=== PATIENT | male | born 1935 | race Caucasian/White ===

== ENCOUNTER 2017-01-19 07:00 | Inpatient (IN) | payer MEDICARE ==
[2017-01-19] MEDS ORDERED: NS 0.9% 1000 ML* 3,000 ML IV ONE (07:58)
[2017-01-19 08:23] LABS: Hematocrit 36 % (42-52); Hemoglobin 11.9 g/dl (14.0-18.0); Mean Corpuscular HGB Conc 33 g/dl (31-36); Mean Corpuscular Hemoglobin 30 pg (27-31); Mean Corpuscular Volume 91 fL (80-94); Mean Platelet Volume 8 um3 (7.4-10.4); Red Blood Count 3.92 10^6/ul (4.0-5.4); Red Cell Distribution Width 14 % (10.5-15); White Blood Count 11.3 10^3/ul (3.5-10.8)
[2017-01-19 08:36] LABS: Albumin 3.1 g/dL (3.2-5.2); BUN/Creatinine Ratio 13.5 (8-20); Calcium 8.9 mg/dL (8.6-10.3); EGFR African American 27.9 (>60); EGFR Non-African American 21.7 (>60); Globulin 3.5 g/dL (2-4); Magnesium 2.1 mg/dL (1.9-2.7); Potassium 3.4 mmol/L (3.5-5.0); Total Bilirubin 0.9 mg/dL (0.2-1.0); Total Protein 6.6 g/dL (6.4-8.9)
[2017-01-19 08:46] LABS: Troponin I 0.22 ng/mL (<0.04)
--- NOTE | 2017-01-19 08:50 | RAD ---
INDICATION: Syncope COMPARISON: Most recent comparison chest x-ray is dated September 08, 2014 TECHNIQUE: Single AP portable view of the chest was obtained. FINDINGS: Image quality is compromised due to the relative inferiority of a portable chest x-ray. The heart and mediastinum exhibit normal size and contour. The lungs are grossly clear. There is a small degree of left costophrenic angle blunting similar in appearance to the previous chest x-ray which could represent atelectasis or scarring. There is no evidence of a large pleural effusion. Visualized bones are normal for the patient's age. IMPRESSION: No radiographic evidence for acute cardiopulmonary abnormality on this portable chest x-ray.
[2017-01-19] MEDS ORDERED: NS 0.9% 1000 ML* 1,000 ML IV SCH (09:30)
[2017-01-19 09:58] LABS: TSH (Thyroid Stimulating Horm) 4.23 mcIU/mL (0.34-5.60)
--- NOTE | 2017-01-19 11:07 | ED ---
Des Duran Salem, scribed for Petey Knight MD on 01/19/17 at 0817 . Syncope/Near Syncope - HPI Summary HPI Summary: Patient is a 81 y/o M who presents to the ED with a syncope episode. He reports dizziness, weakness, dry throat, and frequency, but denies D/V, abd pain, cough , changes in vision or speech, fever, chills, or edema. Pt states that he fell slowly during syncope episode and denies any injuries. Pt also denies any recent changes in medication or taking any blood thinners. No PMHx of DM or syncope. He lives at home with his . - History Of Current Complaint Time Seen by Provider: 01/19/17 08:50 Hx Obtained From: Patient Onset/Duration: Gradual Onset, Lasting Hours, Resolved Timing: Constant Activity At Onset: Other - Walking to restroom. Associated Head Trauma: No Aggravating Factor(s): Nothing Alleviating Factor(s): Nothing Associated Signs And Symptoms: Negative - Allergies/Home Medications Allergies/Adverse Reactions: Allergies Allergy/AdvReac Type Severity Reaction Status Date / Time Iodine Allergy Intermediate Rash Verified 06/18/15 17:23 PMH/Surg Hx/FS Hx/Imm Hx Endocrine/Hematology History: Denies: Hx Diabetes, Hx Thyroid Disease Cardiovascular History: Reports: Hx Coronary Artery Disease - PRN NITROSTAT, Hx Hypercholesterolemia, Hx Hypertension Respiratory History: Reports: Hx Pulmonary Embolism Denies: Hx Asthma, Hx Chronic Obstructive Pulmonary Disease (COPD) GI History: Reports: Other GI Disorders - hx of colon cancer Denies: Hx Ulcer Musculoskeletal History: Reports: Hx Arthritis Sensory History: Reports: Hx Contacts or Glasses - reading glasses Opthamlomology History: Reports: Hx Contacts or Glasses - reading glasses Psychiatric History: Reports: Hx Anxiety, Hx Depression, Hx Community Mental Health Tx Denies: Hx Eating Disorder, Hx of Violent Episodes Against Others - Cancer History Cancer Type, Location and Year: HX OF COLON CA - Surgical History Surgery Procedure, Year, and Place: colon Infectious Disease History: Denies: Hx Clostridium Difficile, Hx Hepatitis, Hx Human Immunodeficiency Virus (HIV), Hx of Known/Suspected MRSA, Hx Shingles, Hx Tuberculosis, Traveled Outside the [place] in Last 30 Days - Family History Known Family History: Positive: Other - no mental health FHx - Social History Alcohol Use: None Hx Substance Use: No Substance Use Type: Reports: None Hx Tobacco Use: No Smoking Status (MU): Never Smoked Tobacco Review of Systems Negative: Fever, Chills Positive: Other - Dry throat. Negative: Cough Negative: Abdominal Pain, Vomiting, Diarrhea Positive: frequency Negative: Edema Neurological: Other - Dizziness. No changes in vision or speech. Positive: Weakness, Syncope All Other Systems Reviewed And Are Negative: Yes Physical Exam - Summary Physical Exam Summary: The patient is well-nourished in no acute distress and in no acute pain. Generalized weakness. The skin is warm and dry and skin color reflects adequate perfusion. Decreased skin turgor. HEENT: The head is normocephalic and atraumatic. The pupils are equal and reactive. The conjunctivae are clear and without drainage. Nares are patent and without drainage. Mouth reveals moist mucous membranes and the throat is without erythema and exudate. The external ears are intact. The ear canals are patent and without drainage. The tympanic membranes are intact. DMM extremely. Neck is supple with full range of motion and non-tender. There are no carotid bruits. There is no neck vein distension. Respiratory: Chest is non-tender. Crackles in left base. Cardiovascular: Hear is regular rate and rhythm. There is no murmur or rub auscultated. There is no peripheral edema and pulses are symmetrical and equal. Good pulses distally. Abdomen: The abdomen is soft and non-tender. There are normal bowel sounds heard. Musculoskeletal: There is no back pain noted. Extremities are non-tender with full range of motion. There is good capillary refill. There is peripheral edema, but no calf tenderness elicited. Neurological: Patient is alert and oriented to person, place and time. The patient has symmetrical motor strength in all four extremities. Psychiatric: The patient has an appropriate affect and does not exhibit any anxiety or depression. Triage Information Reviewed: Yes Vital Signs On Initial Exam: Initial Vitals Temp Pulse Resp BP Pulse Ox 98.8 F 93 16 85/36 91 01/19/17 07:11 01/19/17 07:11 01/19/17 07:11 01/19/17 07:11 01/19/17 07:11 Vital Signs Reviewed: Yes - [place] Coma Scale Coma Scale Total: 15 Diagnostics - Vital Signs Vital Signs Temp Pulse Resp BP Pulse Ox 01/19/17 07:11 98.8 F 93 16 85/36 91 - Laboratory Lab Results: Lab Results 01/19/17 01/19/17 01/19/17 Range/Units 08:10 08:10 08:10 WBC 11.3 H (3.5-10.8) 10^3/ul RBC 3.92 L (4.0-5.4) 10^6/ul Hgb 11.9 L (14.0-18.0) g/dl Hct 36 L (42-52) % MCV 91 (80-94) fL MCH 30 (27-31) pg MCHC 33 (31-36) g/dl RDW 14 (10.5-15) % Plt Count 118 L (150-450) 10^3/ul MPV 8 (7.4-10.4) um3 Neut % (Auto) 83.4 H (38-83) % Lymph % (Auto) 5.4 L (25-47) % Todd % (Auto) 9.7 H (1-9) % Eos % (Auto) 1.1 (0-6) % Baso % (Auto) 0.4 (0-2) % Absolute Neuts (auto) 9.4 H (1.5-7.7) 10^3/ul Absolute Lymphs (auto) 0.6 L (1.0-4.8) 10^3/ul Absolute Monos (auto) 1.1 H (0-0.8) 10^3/ul Absolute Eos (auto) 0.1 (0-0.6) 10^3/ul Absolute Basos (auto) 0 (0-0.2) 10^3/ul Absolute Nucleated RBC 0 10^3/ul Nucleated RBC % 0 INR (Anticoag Therapy) (0.89-1.11) Sodium 135 (133-145) mmol/L Potassium 3.4 L (3.5-5.0) mmol/L Chloride 100 L (101-111) mmol/L Carbon Dioxide 25 (22-32) mmol/L Anion Gap 10 (2-11) mmol/L BUN 38 H (6-24) mg/dL Creatinine 2.81 H (0.67-1.17) mg/dL Est GFR ( Amer) 27.9 (>60) Est GFR (Non-Af Amer) 21.7 (>60) BUN/Creatinine Ratio 13.5 (8-20) Glucose 142 H (70-100) mg/dL Lactic Acid 2.4 H* (0.5-2.0) mmol/L Calcium 8.9 (8.6-10.3) mg/dL Magnesium 2.1 (1.9-2.7) mg/dL Total Bilirubin 0.90 (0.2-1.0) mg/dL AST 14 (13-39) U/L ALT 9 (7-52) U/L Alkaline Phosphatase 57 (34-104) U/L Total Creatine Kinase 129 (10-223) U/L Troponin I 0.22 H* (<0.04) ng/mL Total Protein 6.6 (6.4-8.9) g/dL Albumin 3.1 L (3.2-5.2) g/dL Globulin 3.5 (2-4) g/dL Albumin/Globulin Ratio 0.9 L (1-3) TSH 4.23 (0.34-5.60) mcIU/mL 01/19/17 Range/Units 08:10 WBC (3.5-10.8) 10^3/ul RBC (4.0-5.4) 10^6/ul Hgb (14.0-18.0) g/dl Hct (42-52) % MCV (80-94) fL MCH (27-31) pg MCHC (31-36) g/dl RDW (10.5-15) % Plt Count (150-450) 10^3/ul MPV (7.4-10.4) um3 Neut % (Auto) (38-83) % Lymph % (Auto) (25-47) % Todd % (Auto) (1-9) % Eos % (Auto) (0-6) % Baso % (Auto) (0-2) % Absolute Neuts (auto) (1.5-7.7) 10^3/ul Absolute Lymphs (auto) (1.0-4.8) 10^3/ul Absolute Monos (auto) (0-0.8) 10^3/ul Absolute Eos (auto) (0-0.6) 10^3/ul Absolute Basos (auto) (0-0.2) 10^3/ul Absolute Nucleated RBC 10^3/ul Nucleated RBC % INR (Anticoag Therapy) 1.09 (0.89-1.11) Sodium (133-145) mmol/L Potassium (3.5-5.0) mmol/L Chloride (101-111) mmol/L Carbon Dioxide (22-32) mmol/L Anion Gap (2-11) mmol/L BUN (6-24) mg/dL Creatinine (0.67-1.17) mg/dL Est GFR ( Amer) (>60) Est GFR (Non-Af Amer) (>60) BUN/Creatinine Ratio (8-20) Glucose (70-100) mg/dL Lactic Acid (0.5-2.0) mmol/L Calcium (8.6-10.3) mg/dL Magnesium (1.9-2.7) mg/dL Total Bilirubin (0.2-1.0) mg/dL AST (13-39) U/L ALT (7-52) U/L Alkaline Phosphatase (34-104) U/L Total Creatine Kinase (10-223) U/L Troponin I (<0.04) ng/mL Total Protein (6.4-8.9) g/dL Albumin (3.2-5.2) g/dL Globulin (2-4) g/dL Albumin/Globulin Ratio (1-3) TSH (0.34-5.60) mcIU/mL Result Diagrams: 01/19/17 08:10 01/19/17 08:10 Diagnostic Studies Comment: Trop: 0.22. Lactic acid: 2.4 Lab Statement: Any lab studies that have been ordered have been reviewed, and results considered in the medical decision making process. - Radiology CXR Radiology Interpretation Completed By: Radiologist - IMPRESSION: No radiographic evidence for acute cardiopulmonary abnormality on this portable chest x-ray. Course/Dx Course Of Treatment: 81 y/o M presents to the ED with a syncope episode. He reports dizziness, weakness, dry throat, and frequency, but denies D/V, abd pain , cough, changes in vision or speech, fever, chills, or edema. Pt received fluids in ED course. CXR shows, per radiology, No radiographic evidence for acute cardiopulmonary abnormality on this portable chest x-ray.. Discussed case with Dr. Jorge. Will be admitted. - Diagnoses Differential Diagnosis/HQI/PQRI: Positive: Metabolic Reaction, Myocardial Infarction, Vasovagal Episode, Other - dehydration Provider Diagnoses: Hypotension, Elevated troponin, Severe dehydration - Physician Notifications Discussed Care of Patient With: Katarzyna Jorge Time Discussed With Above Provider: 09:12 Instructed by Provider To: Admit As Inpatient Admit/Transition Orders Completed By ED Provider: Yes Discharge - Discharge Plan Condition: Stable Disposition: ADMITTED TO [facility] Referrals: Ann Mccall MD [Primary Care Provider] - The documentation as recorded by the Des hurtado Salem accurately reflects the service I personally performed and the decisions made by , Petey Knight MD.
[2017-01-19] MEDS ORDERED: NS 0.9% 1000 ML* 1,000 ML IV ONE ×2 (12:13→13:15)
[2017-01-19] MEDS ORDERED: Acetaminophen TAB* 325 MG PO PRN (12:13)
[2017-01-19] MEDS ORDERED: traZODone TAB* 50 MG TAB PO PRN (12:15)
[2017-01-19] MEDS ORDERED: EPINEPHrine SYR 0.1 MG/ML* (1:10,000) SYRINGE ONE (13:00)
[2017-01-19] MEDS ORDERED: Midazolam* 1 MG/ML 5 ML VIAL (5 MG) ONE (13:06)
[2017-01-19] MEDS ORDERED: Norepinephrine 16MCG/ML IVPRE* 4,000 MCG/250 ML BAG IV ONE (13:33)
--- NOTE | 2017-01-19 13:38 | RAD ---
INDICATION: Status post intubation. COMPARISON: Comparison is made with a prior study from January 19, 2017 from approximately the 5 hours earlier. TECHNIQUE: A portable view of the chest was obtained. FINDINGS: The patient is status post intubation. The endotracheal tube tip projects over the midline at the level of the clavicular heads. The heart is within normal limits in size. The lungs are underinflated. There is a minimal infiltrate at the left lung base suggestive of atelectasis. There is suggestion of a trace left pleural effusion. IMPRESSION: STATUS POST INTUBATION.
[2017-01-19] MEDS ORDERED: Propofol* 100 ML ONE (13:42)
[2017-01-19] MEDS ORDERED: Heparin VIAL(*) 5000 UNITS/ML VIAL (FIVE THOUSAND) SUBCUT SCH (14:00)
--- NOTE | 2017-01-19 14:11 | PN ---
Hospitalist Progress Note Responded to CAT call. Pt was transferred up from ER to [address] [place] [address]. Prior to transfer patient A and o times three no complaints of chest pain sob, abd pain, back pain, states his dizziness resolved. admits to feeling weak only. While attempting to obtain a weight from patient he became unresponsive, palor, and nursing noted agonal breathing, cat call call than abc alert call, as once patient in bed nursing reports pulseless. When I arrived cpr in progress, one amp of epi given, ROSC obtain after epi, patient intubated by anesthesia, prior to cat call I had just received a call for an elevated trop .22 up to .55 , ekg was verbally ordered however deferred due to abc alert, pt transferred to ICU arelis and central line place by christian ministries professor, christian ministries professor updated on patient and report given, also updated family both son and , will repeat labs now cbc bmp trop mag, echo ekg ordered u/a pending awaiting gage, renal u/ s ordered, care transferred to Dr Jack
--- NOTE | 2017-01-19 14:15 | PN ---
Progress Note - Progress Note Note: Arterial Line Procedure Note Indication: hypotension/shock Consent was Emergent - Prior labs/history was reviewed prior to procedure - Full sterile precautions with chlorhexidine/full drapes/gowns/gloves utilized - Right femoral artery visualized with US - Vessel accessed with return of pulsatile blood. 1 attempt was made to access vessel. A cathetor was threaded over wire into vessel. Good arterial waveform was observed on monitor. - Arterial Catheter was sutured to site - Adequate hemostasis was achieved, EBL 5 cc No immediate complications noted, patient tolerated procedure well. Dressing applied to site. Yves Jack MD Weekday Babysitter (electronically signed)
--- NOTE | 2017-01-19 14:15 | PN ---
Progress Note - Progress Note Note: Central Line Procedure Note Indication: Hypotension/shock, poor vascular access, christa-arrest state Consent was Emergent - Prior labs/history was reviewed prior to procedure - Full sterile precautions with chlorhexidine/full drapes/gowns/gloves utilized - Right femoral vein visualized with ultrasound - Vessel accessed under ultrasound guidance with return of nonpulsatile blood. A guidewire was passed into vessel and confirmed in vessel with ultrasound. 1 attempt was made to access vessel. Vessel was dilated and cathetor was passed over wire into vessel. All ports demonstrated good blood return and flushed. Catheter was sutured to site and dressing applied Adequate hemostasis was achieved, EBL <5cc cc No immediate complications noted, patient tolerated procedure well. Yves Jack MD Medical Record Librarian (electronically signed)
[2017-01-19 14:30] LABS: Urine Bacteria Absent (Absent); Urine Bilirubin Negative (Negative); Urine Glucose Negative (Negative); Urine Nitrite Negative (Negative)
[2017-01-19 14:31] LABS: BUN/Creatinine Ratio 11.8 (8-20); Calcium 8.1 mg/dL (8.6-10.3); EGFR African American 25.4 (>60); EGFR Non-African American 19.8 (>60); Potassium 3.3 mmol/L (3.5-5.0)
[2017-01-19 14:33] LABS: Troponin I 0.7 ng/mL (<0.04)
[2017-01-19] MEDS: NS 0.9% 1000 ML* 1,000 ML IV SCH (14:46)
--- NOTE | 2017-01-19 14:49 | PN ---
Hospitalist Progress Note HOSPITALIST ADDENDUM Case reviewed and d/w Nico Meadows FIBER PICKER multiple times during the day. Suspect Mr. Valdez presented with near syncope and dehydration secondary to poor PO intake and diuretic use. Despite receiving 3 liters of fluid in the ED, upon arrival to , while standing up to check his weight patient had a syncopal episode likely vasovagal followed by PEA. As per RN description, patient was pulseless, and when I arrived he did have electrical activity on the monitor and pulse returned with good blood pressure ( 170/100). Intubated by Anesthesia with good SO2. No overt signs of infection, and his borderline troponins are likely secondary to poor perfusion secondary to hypotension in patient with known CAD. Patient transferred to ICU and now under Dr. Jack's care.
[2017-01-19 14:50] LABS: Hematocrit 34 % (42-52); Hemoglobin 11.1 g/dl (14.0-18.0); Mean Corpuscular HGB Conc 33 g/dl (31-36); Mean Corpuscular Hemoglobin 30 pg (27-31); Mean Corpuscular Volume 92 fL (80-94); Mean Platelet Volume 8 um3 (7.4-10.4); Red Cell Distribution Width 14 % (10.5-15); White Blood Count 13.9 10^3/ul (3.5-10.8)
[2017-01-19 14:57] LABS: PCO2 Arterial 32 mmHg (35-45)
[2017-01-19] MEDS: KCL 10 MEQ/50 ML IVPREMIX* 10 MEQ/50 ML BAG IV SCH ×3 (14:59→18:53)
--- NOTE | 2017-01-19 14:59 | HP ---
CC: Dr. Mccall * HISTORY AND PHYSICAL: DATE OF ADMISSION: 01/19/17 PRIMARY CARE PROVIDER: Dr. Mccall. ATTENDING PHYSICIAN WHILE IN THE HOSPITAL: Dr. Katarzyna Ward * (report dictated by Nico Meadows NP). CHIEF COMPLAINT: 1. Lightheadedness. 2. Weakness. HISTORY OF PRESENTING ILLNESS: Mr. Valdez is an 81-year-old male patient who carries a history of severe depression, CAD, colon cancer, hyperlipidemia, and a history of hypertension. He comes into the ER today, stating that he went to get up to go to the bathroom, he started feeling lightheaded, felt like he was going to faint. He did not faint, fortunately, but he just was not feeling well, was feeling weak. He says he has been feeling weak for about a month now, but it was much worse today. He denied having any chest pain. He denied having any shortness of breath. Denied having any abdominal pain. He says he has not really had a bowel movement in a couple of days, but he denies having any abdominal discomfort and no fevers or chills. His could not get him up off the bed. She was concerned and she essentially call 911 and brought the patient into the hospital. He was evaluated here and it was noted that he appeared to be profoundly dehydrated. He appeared to be in acute renal failure and he had an elevated troponin of unclear etiology, so the hospitalist service was asked to evaluate for admission. PAST MEDICAL HISTORY: Significant for: 1. Depression. 2. CAD. 3. Colon cancer. 4. Hypertension. 5. Hyperlipidemia. PAST SURGICAL HISTORY: 1. He has had ECT therapy in the past for depression. 2. Left total hip arthroplasty. 3. Colon resection. 4. Cardiac catheterization. HOME MEDICATIONS: According to the list that we were able to obtain, include: 1. Mevacor 20 mg p.o. daily. 2. Aspirin 81 mg daily. 3. VESIcare 5 mg p.o. b.i.d. 4. Flomax 0.4 mg daily. 5. Trazodone 50 mg at bedtime as needed. 6. B12 500 mcg p.o. daily. 7. Toprol XL 12.5 mg daily. 8. Chlorthalidone 25 mg p.o. daily. ALLERGIES TO MEDICATIONS: Include IODINE. FAMILY HISTORY: His mother had a history of CVA. Father's history is unknown. SOCIAL HISTORY: He does not smoke. He does not drink. Surrogate decision maker is his . REVIEW OF SYSTEMS: There is no documented fevers. He denies any significant weight change to me. There was no double vision. He denies having any ear discharge. He denies having any rhinorrhea. There has been no sore throat, no thyroid enlargement. Denies having any chest pain currently. He denies having any abdominal pain. No nausea, no vomiting. No dysuria, no frequency. No loss of consciousness. No pruritus and no skin ulcerations. Review of 14 systems was completed, all others are negative. PHYSICAL EXAMINATION GENERAL: At this time, Mr. Valdez is an 81-year-old male patient. He is sitting in the ER stretcher. He does not appear to be in any acute distress, but he certainly does appear to be chronically ill appearing. VITAL SIGNS: Reveal a blood pressure of 88/57, a pulse of 80, respirations 18, O2 saturation 95%, temperature of 98.8. HEENT: Head is atraumatic. Eyes: Sclerae are anicteric, not pale. Throat: Oral mucosa does appear to be dry. No oropharyngeal erythema. NECK: Supple. LUNGS: Clear to auscultation bilaterally. There was no wheezes, rales or rhonchi. HEART: Heart sounds S1 and S2. Regular rate and rhythm. No murmurs, rubs or gallops. ABDOMEN: Soft. It was flat and nontender. Bowel sounds present. EXTREMITIES: Pulses were 2+ throughout. He is able to move all 4 extremities with 5/5 strength. SKIN: Intact. NEUROLOGIC: He is awake. He is alert. He is oriented x3. Tongue is midline. Residential Insurance Inspector are equal. No gross focal deficits. DIAGNOSTIC STUDIES/LABORATORY DATA: Revealed a WBC of 11.3, RBC of 3.92, hemoglobin of 11.9, hematocrit of 36, platelet count of 118. INR is 1.09. His sodium is 135, potassium 3.4, chloride 100, bicarb 25, BUN 38, creatinine 2.81, his baseline creatinine appears to be about 1. His glucose is 142. His lactate was 2.4, calcium 8.9, total mag 2.1, total bili 0.9, AST 14, ALT 9, alk phos 57, CK 129, troponin 0.22, albumin is 3.1. Urine is pending. He did have a chest x-ray obtained today, and on my review I do not appreciate any infiltrates. Radiology read it as no radiographic evidence for acute cardiopulmonary abnormality on this portable x-ray. He had an EKG obtained today as well, which revealed a normal sinus rhythm with a rate of 97. He had no ST elevations or T-wave inversions. Read on the previous EKG had similar, exception is his rate is faster now. Old medical records were reviewed. I did review an echo from his outpatient senior software qa engineer. The EF was right around 60% to 65%. ASSESSMENT AND PLAN: Mr. Valdez is an 81-year-old male patient, coming into the ER today with complaints of feeling dizzy, particularly when he has position change, and on evaluation was found to be in acute renal failure and has an elevated troponin. We were asked to evaluate for admission. He will be admitted under observation status for: 1. Presyncope: Again, I think at this point the patient is probably orthostatic because he appears to be profoundly dehydrated. He says he has not drank in a couple of days, in addition to this he takes chlorthalidone. I am going to go ahead and give him another liter of fluid for a total of 4 L, and then normal saline at a 100 an hour. I will try to get orthostatic blood pressures on him. I will place him on telemetry. I will get an echo as well and we will continue follow, but I think that the culprit of this is most likely dehydration. 2. Weakness: Etiology is unclear. I am going to get a urine and this might be the culprit, also could just be from dehydration as well. We will go ahead and get a PT evaluation. 3. Acute renal failure: At this point, he was on chlorthalidone, could be prerenal. I am going to send off a FENa. I did a bladder scan, his bladder did have about 500 cc. We will go ahead and straight cath him and if his creatinine is not improved, we could consider renal ultrasound and we will continue to follow. He is not having any pain and that would indicate obstructive uropathy to me. We will continue to follow. 4. Coronary artery disease: Continue his meds as prescribed. 5. Colon cancer: Follow up with his primary. 6. Depression: Continue supportive care. 7. Hyperlipidemia: Continue statin therapy. 8. Hypertension: We will hold the atenolol and chlorthalidone as his blood pressure is in the upper 80s systolically, but again this is probably related to dehydration. We will hydrate and monitor. 9. Elevated troponin: Etiology is unclear. It could be related to the fact that he has some demand ischemia from hypotension, which is probably being brought on by the fact that he is profoundly dehydrated. I think at this point , we will trend these. We will get the echo. He is not having any chest pain. The EKG looks stable. We will monitor. 10. Hypokalemia: I will go ahead and replace this. 11. Deep vein thrombosis prophylaxis: I am going to go ahead and put him on heparin subcu as he is high risk. 12. Code status: He is full code. 13. Fluid, electrolyte, nutrition: He can have a heart-healthy diet. TIME SPENT: Time spent on the admission was 60 minutes, greater than half that time was spent [id number] with the patient obtaining my history and physical, the other half of the time was spent going over the plan of care with the patient and implementing the plan of care. I discussed the plan of care with my attending, Dr. Ward, she is in agreement. NICO MEADOWS NP [id number]/CPS #: [id number] [facility]
--- NOTE | 2017-01-19 15:48 | ECHO ---
Patient: WIL THOMAS [facility] Rec#: [id number] : 1935 Date: 01/19/2017 Age: 81y Height: 172.72 cm / 68.0 in Weight: 72.57 kg / 159.9 lbs Sex: M BSA: 1.86 Room#: [facility] Admit Date#: 01/19/2017 Type: Inpatient Referring: Nico Meadows NP Reading: Judi Gary MD [employer] Teacher: [facility] Tran[facility]horacic Echocardiogram Indication: Cardiac Arrest BP: 91/61 HR: 141 Rhythm: Tachycardia Findings History: CAD, HTN, HLD, pulmonary embolism. Patient was sedated, intubated, and mechanically ventilated. Patient was on a Levophed drip at 6 mcg/min during the exam. Technical Comments: The study quality is fair. The study is technically limited due to patient being intubated and on a ventilator. Left Ventricle: The left ventricular chamber size is decreased. Mild concentric left ventricular hypertrophy is observed. There is a focal wall motion abnormality present.D shaped septum consitant with RV overload. The left ventricle appears hyperdynamic. The estimated ejection fraction is greater than 65%. There is septal flattening of the interventricular septum consistent with right ventricular volume or pressure overload. There is no consistent Doppler evidence of clinically significant diastolic dysfunction. Left Atrium: The left atrial chamber size is normal. Right Ventricle: Moderator Band present. The right ventricle is moderately dilated. The right ventricular global systolic function is severely reduced. Right Atrium: The right atrium is moderately dilated. Aortic Valve: The aortic valve is trileaflet. The aortic valve leaflets are mildly thickened. There is mild aortic regurgitation. There is no evidence of aortic stenosis. Mitral Valve: There is mitral annular calcification. The mitral valve leaflets are mildly thickened. There is mild mitral regurgitation. There is no evidence of mitral stenosis. Tricuspid Valve: The tricuspid valve leaflets are normal. There is mild to moderate tricuspid regurgitation. There is evidence of mild pulmonary hypertension. There is no tricuspid stenosis. Pulmonic Valve: The pulmonic valve appears normal. There is a trace pulmonic regurgitation. There is no pulmonic stenosis. Pericardium: There is no significant pericardial effusion. Aorta: There is no dilatation of the ascending aorta. There is no dilatation of the aortic arch. There is mild dilatation of the aortic root. Pulmonary Artery: The main pulmonary artery is not well visualized. Venous: Unable to accurately comment on the size collapsibility of the IVC as the patient in known to be on mechanical ventilation. Conclusions Mild concentric left ventricular hypertrophy is observed. The left ventricle appears hyperdynamic. D shaped septum consitant with RV overload. The right ventricle is moderately dilated. The right ventricular global systolic function is severely reduced, the very tip of the apex contracts and the very base of the free wall contracts, the rest of the RV is akinetic. There is mild aortic regurgitation with aortic valve sclerosis. There is mild mitral regurgitation. There is mild to moderate tricuspid regurgitation. There is evidence of mild pulmonary hypertension: 42 mmHg, may be underestimated. No prior echo to compare. The study is technically limited due to patient being intubated and on a ventilator. Measurements Name Value Normal Range RVIDd (AP) 2D 3.6 cm (0.9 - 2.6) RVDdMajor (2D) 4.8 cm (2.2 - 4.4) RAd ISD 4CH 4.8 cm (3.4 - 4.9) RA (A4C)W 5.3 cm (2.9 - 4.6) IVSd (2D) 1.2 cm (0.6 - 1) LVPWd (2D) 1.2 cm (0.6 - 1) LVIDd (2D) 3.2 cm (3.6 - 5.4) LVIDs (2D) 2.4 cm - LV FS (2D) 27 % (25 - 45) Aortic Annulus 2.1 cm (1.4 - 2.6) Ao root diameter (2D) 4.1 cm (2.1 - 3.5) Ascending Ao 3.4 cm (2.1 - 3.4) Aortic arch 3.4 cm (1.8 - 3.4) LA dimension (AP) 2D 2.6 cm (2.3 - 3.8) LAd ISD 4CH 4.6 cm (2.9 - 5.3) LA ISD 4CH W 4.3 cm (2.5 - 4.5) Name Value Normal Range LA ESV SP 4CH (A/L) 60 ml - LA ESV SP 2CH (A/L) 85 ml - LA ESV BP (A/L) 73 ml - LA ESV BP (A/L) index 39.09 ml/m2 - LA ESV SP 4CH (MOD) 57 ml - LA ESV SP 2CH (MOD) 79 ml - Name Value Normal Range MV E-wave Vmax 1.3 m/sec - MV deceleration time 115 msec - MV A-wave Vmax 0.61 m/sec - MV E:A ratio 2.08 ratio - LV septal e' Vmax 0.11 m/sec - LV lateral e' Vmax 0.19 m/sec - LV E:e' septal ratio 11.82 ratio - LV E:e' lateral ratio 15.79 ratio - Name Value Normal Range AV Vmax 1 m/sec - AV VTI 9.3 cm - AV peak gradient 3.54 mmHg - AV mean gradient 1.78 mmHg - LVOT Vmax 0.7 m/sec - LVOT VTI 6.7 cm - LVOT peak gradient 2 mmHg - LVOT mean gradient 1.09 mmHg - AR PHT 435 msec - AR peak gradient 45.8 mmHg - CHRISTOPHER Vmax 0.71 m/sec - Name Value Normal Range TR Vmax 2.9 m/sec - TR peak gradient 34 mmHg - RAP 8 mmHg - RVSP 42 mmHg - IVC diameter 2.4 cm - Name Value Normal Range PV Vmax 0.7 m/sec - PV peak gradient 1.74 mmHg -
[2017-01-19] MEDS: Docusate CAP* 100 MG PO SCH ×2 (16:12→21:09)
--- NOTE | 2017-01-19 16:39 | RAD ---
Indication: Acute renal failure. Comparison: July 12, 2011 Technique: Renal ultrasound. Report: Intubated. Limited acoustic window due to inability to perform breath holds. 10.2 x 5.1 x 5.5 cm RIGHT kidney. 10.4 x 5.5 x 4.0 cm LEFT kidney. Normal range bilateral renal cortical echogenicity and thickness. No focal renal lesions, conspicuous stones, or hydronephrosis. IMPRESSION: Negative bilateral renal ultrasound.
--- NOTE | 2017-01-19 18:04 | CONSULT ---
Consult Consult: Consultation Note Critical Care Requesting Physician: Dr Katarzyna Jorge Reason for consult: cardiac arrest Limitations in history/physical: intubated Date of consult: 01/19/2017 HPI: 81y M pmhx Depression, HTN, HLD, CAD s/p PCI 20+ yrs back, h/o PE 20+ yrs back ? (family unclear); who came to ER for syncopal episode, dizziness, weakness for days. He was found to be in acute kidney injury, mild lactic acid elevation. He was admitted with diagnosis of possible volume depletion. BP initially were in the 80s, sats low 90s, afebrile. He was on the medical floor and after 3 liters of IVF, BP was in the upper 80s-low 90s. He was being gotten up for weights and vitals when he syncopised and had agonal breathing, intubated by anesthesia. He had a brief loss of pulse, but they said Tele monitoring showed a cardiac rhythm, CPR and epi x1 was given with ROSC. He was transferred to the ICU where he was hypotensive, emergent central and arterial lines were placed, started on levophed, IVF NS bolus x1, gage catheter for anuria. An EGK was done showing sinus tachycardia with more RBBB patter, Twave inversions in lateral leads and lead II, different than the EKG from earlier in morning showing sinus rhythm without ekg changes. A stat echo was ordered and read as dilated hypokinetic RV, with pressure/volume overload and hyperdynamic LV, no effusion. I reviewed findings with Dr Gary of cardiology. Chest xray is clear of infiltrates. Tropinins are mildly elevated 0.55, 0.7 ROS: unable to obtained, patient intubated and post arrest state PMHx: Depression, HTN, HLD, CAD, h/o PE PSHx: h/o colon Ca Family History: none Social History: Alcohol none, Smoking none, Drug use none Allergies: Allergies Allergy/AdvReac Type Severity Reaction Status Date / Time Iodine Allergy Intermediate Rash Verified 06/18/15 17:23 Home Medications: Lovastatin(NF) [Mevacor(NF)] 20 mg PO DAILY 04/25/15 [History Confirmed 01/19/17 ] Tamsulosin CAP* [Flomax CAP*] 0.4 mg PO DAILY 04/25/15 [History Confirmed ] traZODone TAB* [Desyrel TAB*] 50 mg PO BEDTIME PRN 06/18/15 [History Confirmed 01/19/17] Aspirin EC Low Dose* [Ecotrin EC Low Dose 81 MG*] 81 mg PO DAILY 01/19/17 [ History Confirmed 01/19/17] Chlorthalidone TAB* [Hygroton TAB*] 25 mg PO DAILY 01/19/17 [History Confirmed 01/19/17] Cyanocobalamin TAB* [Vitamin B12 TAB*] 500 mcg PO DAILY 01/19/17 [History Confirmed 01/19/17] Metoprolol Succinate XL TAB* [Toprol XL TAB*] 12.5 mg PO DAILY 01/19/17 [ History Confirmed 01/19/17] Solifenacin(NF) [Vesicare(NF)] 5 mg PO BID 01/19/17 [History Confirmed 01/19/17] Tele: sinus tachycardia Vitals: Vital Signs Temp 98.9 F 01/19/17 16:15 Pulse 95 01/19/17 16:15 Resp 20 01/19/17 16:15 BP 112/56 01/19/17 15:00 Pulse Ox 100 01/19/17 16:15 Intake & Output 01/18/17 01/19/17 01/19/17 18:59 06:59 18:59 Intake Total 1999 Balance 1999 Weight 160 lb Intake: IV Fluids 1999 O2/Vent: AC 450/+5/40%, sat 100% Infusions: levophed, propofol Current Medications: Acetaminophen (Tylenol Tab*) 650 mg PO Q4H PRN PRN Reason: FEVER/PAIN Aspirin (Aspirin Ec Low Dose*) 81 mg PO DAILY [facility] Atorvastatin Calcium (Lipitor*) 5 mg PO DAILY [facility] Docusate Sodium (Colace Cap*) 100 mg PO BID MICHAEL Last Admin: 01/19/17 16:12 Dose: Not Given Heparin Sodium (Porcine) (Heparin Vial(*)) 5,000 units SUBCUT Q8HR MICHAEL Last Admin: 01/19/17 14:59 Dose: 5,000 units Propofol (Diprivan*) 100 mls @ 8.709 mls/hr IV .(Initial Rate) MICHAEL; 20 MCG/KG/ MIN PRN Reason: Protocol Sodium Chloride (Ns 0.9% 1000 Ml*) 1,000 mls @ 125 mls/hr IV .per rate [facility] Last Admin: 01/19/17 14:46 Dose: 125 mls/hr Norepinephrine Bitartrate (Levophed 16 Mcg/Ml Premix Bag*) 4,000 mcg in 250 mls @ 7.5 mls/hr IV .INITIAL RATE [facility] PRN Reason: 2 MCG/MIN Senna (Senokot Tab*) 2 tab PO BEDTIME MICHAEL Solifenacin (Vesicare(Nf)) 5 mg PO BID MICHAEL Tamsulosin HCl (Flomax Cap*) 0.4 mg PO DAILY MICHAEL Trazodone HCl (Desyrel Tab*) 50 mg PO BEDTIME PRN PRN Reason: SLEEP Physical Exam: General: awake, intubated, follows all commands Head: normocephalic, atraumatic HEENT: no pallor, no icterus, dry mucous membranes Neck: soft, supple, no jvd, no stridor CVS: tachycardic, normal rhythm, no murmur Resp: bilateral air entry, no rhales, no wheeze, no rhonchi, no acc muscle use Abdomen: soft, nontender, nondistended, bowel sounds present Ext: pulses+, warm, no edema Skin: intact, no breakdown, no dryness Neuro: intubated, on sedation but awakens easily, alert, follows commands Labs: Laboratory Results - last 24 hr 01/19/17 01/19/17 01/19/17 08:10 08:10 08:10 WBC 11.3 H RBC 3.92 L Hgb 11.9 L Hct 36 L MCV 91 MCH 30 MCHC 33 RDW 14 Plt Count 118 L MPV 8 Neut % (Auto) 83.4 H Lymph % (Auto) 5.4 L [place] % (Auto) 9.7 H Eos % (Auto) 1.1 Baso % (Auto) 0.4 Absolute Neuts (auto) 9.4 H Absolute Lymphs (auto) 0.6 L Absolute Monos (auto) 1.1 H Absolute Eos (auto) 0.1 Absolute Basos (auto) 0 Absolute Nucleated RBC 0 Nucleated RBC % 0 INR (Anticoag Therapy) APTT D-Dimer, Quantitative ABG pH ABG pCO2 ABG pO2 ABG HCO3 ABG O2 Saturation ABG Base Excess Sodium 135 Potassium 3.4 L Chloride 100 L Carbon Dioxide 25 Anion Gap 10 BUN 38 H Creatinine 2.81 H Est GFR ( Amer) 27.9 Est GFR (Non-Af Amer) 21.7 BUN/Creatinine Ratio 13.5 Glucose 142 H Lactic Acid 2.4 H* Calcium 8.9 Magnesium 2.1 Total Bilirubin 0.90 AST 14 ALT 9 Alkaline Phosphatase 57 Total Creatine Kinase 129 Troponin I 0.22 H* B-Natriuretic Peptide Total Protein 6.6 Albumin 3.1 L Globulin 3.5 Albumin/Globulin Ratio 0.9 L TSH 4.23 Urine Color Urine Appearance Urine pH Ur Specific [place] Urine Protein Urine Ketones Urine Blood Urine Nitrate Urine Bilirubin Urine Urobilinogen Ur Leukocyte Esterase Urine WBC (Auto) Urine RBC (Auto) Urine Bacteria Ur Random Creatinine Ur Random Sodium Urine Glucose 01/19/17 01/19/17 01/19/17 08:10 11:55 14:05 WBC RBC Hgb Hct MCV MCH MCHC RDW Plt Count MPV Neut % (Auto) Lymph % (Auto) [place] % (Auto) Eos % (Auto) Baso % (Auto) Absolute Neuts (auto) Absolute Lymphs (auto) Absolute Monos (auto) Absolute Eos (auto) Absolute Basos (auto) Absolute Nucleated RBC Nucleated RBC % INR (Anticoag Therapy) 1.09 APTT D-Dimer, Quantitative ABG pH ABG pCO2 ABG pO2 ABG HCO3 ABG O2 Saturation ABG Base Excess Sodium 137 Potassium 3.3 L Chloride 104 Carbon Dioxide 22 Anion Gap 11 BUN 36 H Creatinine 3.04 H Est GFR ( Amer) 25.4 Est GFR (Non-Af Amer) 19.8 BUN/Creatinine Ratio 11.8 Glucose 186 H Lactic Acid Calcium 8.1 L Magnesium 2.0 Total Bilirubin AST ALT Alkaline Phosphatase Total Creatine Kinase Troponin I 0.55 H* 0.70 H* B-Natriuretic Peptide Total Protein Albumin Globulin Albumin/Globulin Ratio TSH Urine Color Urine Appearance Urine pH Ur Specific [place] Urine Protein Urine Ketones Urine Blood Urine Nitrate Urine Bilirubin Urine Urobilinogen Ur Leukocyte Esterase Urine WBC (Auto) Urine RBC (Auto) Urine Bacteria Ur Random Creatinine Ur Random Sodium Urine Glucose 01/19/17 01/19/17 01/19/17 14:05 14:05 14:05 WBC RBC Hgb Hct MCV MCH MCHC RDW Plt Count MPV Neut % (Auto) Lymph % (Auto) [place] % (Auto) Eos % (Auto) Baso % (Auto) Absolute Neuts (auto) Absolute Lymphs (auto) Absolute Monos (auto) Absolute Eos (auto) Absolute Basos (auto) Absolute Nucleated RBC Nucleated RBC % INR (Anticoag Therapy) APTT 27.2 D-Dimer, Quantitative > 1050 H ABG pH ABG pCO2 ABG pO2 ABG HCO3 ABG O2 Saturation ABG Base Excess Sodium Potassium Chloride Carbon Dioxide Anion Gap BUN Creatinine Est GFR ( Amer) Est GFR (Non-Af Amer) BUN/Creatinine Ratio Glucose Lactic Acid 2.6 H* Calcium Magnesium Total Bilirubin AST ALT Alkaline Phosphatase Total Creatine Kinase Troponin I B-Natriuretic Peptide 135 H Total Protein Albumin Globulin Albumin/Globulin Ratio TSH Urine Color Urine Appearance Urine pH Ur Specific [place] Urine Protein Urine Ketones Urine Blood Urine Nitrate Urine Bilirubin Urine Urobilinogen Ur Leukocyte Esterase Urine WBC (Auto) Urine RBC (Auto) Urine Bacteria Ur Random Creatinine Ur Random Sodium Urine Glucose 01/19/17 01/19/17 01/19/17 14:05 14:05 14:23 WBC 13.9 H RBC 3.70 L Hgb 11.1 L Hct 34 L MCV 92 MCH 30 MCHC 33 RDW 14 Plt Count 108 L MPV 8 Neut % (Auto) 86.1 H Lymph % (Auto) 3.7 L [place] % (Auto) 7.6 Eos % (Auto) 2.3 Baso % (Auto) 0.3 Absolute Neuts (auto) 12.0 H Absolute Lymphs (auto) 0.5 L Absolute Monos (auto) 1.1 H Absolute Eos (auto) 0.3 Absolute Basos (auto) 0 Absolute Nucleated RBC 0.01 Nucleated RBC % 0 INR (Anticoag Therapy) APTT D-Dimer, Quantitative ABG pH ABG pCO2 ABG pO2 ABG HCO3 ABG O2 Saturation ABG Base Excess Sodium Potassium Chloride Carbon Dioxide Anion Gap BUN Creatinine Est GFR ( Amer) Est GFR (Non-Af Amer) BUN/Creatinine Ratio Glucose Lactic Acid Calcium Magnesium Total Bilirubin AST ALT Alkaline Phosphatase Total Creatine Kinase Troponin I B-Natriuretic Peptide Total Protein Albumin Globulin Albumin/Globulin Ratio TSH Urine Color Yellow Urine Appearance Clear Urine pH 5.0 Ur Specific [place] 1.017 Urine Protein Negative Urine Ketones Negative Urine Blood 2+ H Urine Nitrate Negative Urine Bilirubin Negative Urine Urobilinogen Negative Ur Leukocyte Esterase Negative Urine WBC (Auto) Absent Urine RBC (Auto) 2+(6-10/hpf) H Urine Bacteria Absent Ur Random Creatinine 159.58 Ur Random Sodium 71 Urine Glucose Negative 01/19/17 14:50 WBC RBC Hgb Hct MCV MCH MCHC RDW Plt Count MPV Neut % (Auto) Lymph % (Auto) [place] % (Auto) Eos % (Auto) Baso % (Auto) Absolute Neuts (auto) Absolute Lymphs (auto) Absolute Monos (auto) Absolute Eos (auto) Absolute Basos (auto) Absolute Nucleated RBC Nucleated RBC % INR (Anticoag Therapy) APTT D-Dimer, Quantitative ABG pH 7.37 ABG pCO2 32 L ABG pO2 417 H ABG HCO3 20.3 ABG O2 Saturation 99.9 H ABG Base Excess -5.9 L Sodium Potassium Chloride Carbon Dioxide Anion Gap BUN Creatinine Est GFR ( Amer) Est GFR (Non-Af Amer) BUN/Creatinine Ratio Glucose Lactic Acid Calcium Magnesium Total Bilirubin AST ALT Alkaline Phosphatase Total Creatine Kinase Troponin I B-Natriuretic Peptide Total Protein Albumin Globulin Albumin/Globulin Ratio TSH Urine Color Urine Appearance Urine pH Ur Specific [place] Urine Protein Urine Ketones Urine Blood Urine Nitrate Urine Bilirubin Urine Urobilinogen Ur Leukocyte Esterase Urine WBC (Auto) Urine RBC (Auto) Urine Bacteria Ur Random Creatinine Ur Random Sodium Urine Glucose Imaging: CXR 01/19 - ?small infiltrate/atlectasis left lower lobe ECHO 01/19 - reviewed - RV dilated, hypokinetic, apex moving; no effusion, LV mild LV, D shaped septum V/Q 01/19 - high prob of PE Assessment: 81y M pmhx Depression, HTN, HLD, CAD s/p PCI 20+ yrs back, h/o PE 20 + yrs back ? (family unclear); who came to ER for syncopal episode, dizziness, weakness for days. He was found to be in acute kidney injury, mild lactic acid elevation. He was admitted with diagnosis of possible volume depletion. BP initially were in the 80s, sats low 90s, afebrile. He was on the medical floor and after 3 liters of IVF, BP was in the upper 80s-low 90s. He was being gotten up for weights and vitals when he syncopised and had agonal breathing, intubated by anesthesia. He had a brief loss of pulse, but they said Tele monitoring showed a cardiac rhythm, CPR and epi x1 was given with ROSC. On pressors in ICU, initially hypoxic. -Massive Pulmonary Embolism -Cardiogenic Shock -TANGELA, 2/2 to hypotension + pre-renal azotemia from volume depletion -Acute Hypoxic Respiratory Failure Plan: Currently patient is intubated, following commands, awake on mild propofol, decreasing levophed requirements. On 100% fio2 on AC mode, ABG reviewed showing PO2 >400, now to 40% fio2. His pressor requirements are coming down now and fio2 req are also. Based on current information of there is a very high suspicion of acute PE. Pulmonary embolism must have caused this syncope episode. He had no SOB/CP prior , no LE edema complaints. His fio2 requirements are coming down now. His pressors requirements are also coming down also. We may be able to get a stat V /Q perfusion scan now. Discussion with family about tPA was had, he only meets relative contraindications for age>75 and short CPR, but no absolute contraindications. V/Q positive. Stat tPA due to massive pulm embolism criteria Neuro- dec propofol for better neuro checks while on tPA CVS- maintain levophed, wean down; ECHo reviewed. EKG repeat. Trend troponin. Check LE duplex. tPA to be given over 2 hours 100mg, followed by heparin infusion 12u/kg/hour, follow ptt protocol. avoid all further venous/arterial punctures. Resp- intubated, on AC fio2 100%, now 40%, abg reviewed and oxygen weaned down. Cont sedation. CXR clear. V/Q positive. tPA for thrombolysis as above. ID- afebrile. Wbc elevated now but may be reactive. Holding abx. GI-NPO Renal- TANGELA, may be from hypovolemia from poor po intake vs shock/ischemic ATN. IVF, Pressors. Gage in place. Heme- hg stable, plt stable. Only on aspirin at home. Discussed with family about tPA and risk of it versus benefit. No other anticoagulation. PE history unclear by family from 20+ years back. Old Colon Ca history with resection? for tPA now. Endo- monitor FS Musculsk- pressure ulcer prophylaxis Wounds- none Nutrition- NPO DVT prophylaxis: - GI prophylaxis:- Central Line: right fem 01/19 Arterial Line: right fem 01/19 Gage Cathetor: yes Disposition: ICU for respiratory failure, hypotension and massive pulmonary embolism Code Status: FULL CODE Total Critical Care time is 120 minutes, excluding procedures/teaching Yves Jack MD [employer] (Electronically Signed)
[2017-01-19] MEDS ORDERED: Alteplase* 100 MG VIAL IV ONE (18:55)
--- NOTE | 2017-01-19 18:55 | RAD ---
INDICATION: Evaluate for pulmonary embolus COMPARISON: Chest x-ray January 19, 2017 TECHNIQUE: Following the administration of 6.4 millicuries of technetium 99m, MAA, anterior, posterior, lateral, and oblique imaging of the chest was performed. Only these perfusion images could be obtained. Ventilation images could not be acquired because the patient was on a ventilator FINDINGS: There are multiple wedge-shaped peripheral defects on the perfusion images suggest a high probability scan IMPRESSION: HIGH PROBABILITY FOR ACUTE PULMONARY EMBOLUS. Findings called to the ICU
[2017-01-19] MEDS: Norepinephrine 16MCG/ML IVPRE* 4,000 MCG/250 ML BAG IV SCH (19:15)
[2017-01-19] MEDS ORDERED: ALTEPLASE IVPB ONE ×2 (19:15)
[2017-01-19] MEDS: Propofol* 100 ML IV SCH ×2 (19:15→23:01)
[2017-01-19] MEDS: CMC: Solifenacin(NF) 5 MG TAB PO SCH (21:09)
[2017-01-19] MEDS: Senna TAB PO SCH (21:09)
[2017-01-19] MEDS: Heparin DRIP 25,000 UNITS(*) 25,000 UNITS/500 ML BAG IV SCH (21:33)
[2017-01-19] MEDS: Pantoprazole IV* 40 MG IV SCH (23:56)
[2017-01-19] MEDS: Chlorhexidine MOUTHWASH 0.12%* 15 ML UDC SWISH SPIT SCH (23:56)
[2017-01-20] MEDS: NS 0.9% 1000 ML* 1,000 ML IV SCH ×2 (00:35→08:19)
[2017-01-20] MEDS: Norepinephrine 16MCG/ML IVPRE* 4,000 MCG/250 ML BAG IV SCH ×2 (02:34→22:56)
[2017-01-20 04:19] LABS: Hematocrit 30 % (42-52); Mean Corpuscular HGB Conc 33 g/dl (31-36); Mean Corpuscular Hemoglobin 31 pg (27-31); Mean Corpuscular Volume 92 fL (80-94); Mean Platelet Volume 8 um3 (7.4-10.4); Red Blood Count 3.26 10^6/ul (4.0-5.4); Red Cell Distribution Width 14 % (10.5-15); White Blood Count 10.9 10^3/ul (3.5-10.8)
[2017-01-20 04:28] LABS: BUN/Creatinine Ratio 19.7 (8-20); Calcium 7.6 mg/dL (8.6-10.3); EGFR African American 54.5 (>60); EGFR Non-African American 42.4 (>60)
[2017-01-20 04:54] LABS: Potassium 3.3 mmol/L (3.5-5.0)
--- NOTE | 2017-01-20 05:53 | CONS ---
CC: Dr. Ayan Rodgers; Dr. Ann Mccall * CONSULTATION REPORT: DATE OF CONSULT: 01/19/17 REASON FOR CONSULT: Status post arrest. CHIEF COMPLAINT: The patient was intubated and unable to provide history, chief complaint on admission was weakness and lightheadedness. HISTORY OF PRESENT ILLNESS: Mr. Valdez is an 81-year-old gentleman who presented to the emergency department today 01/19/17 who got up to go to the bathroom and felt lightheaded and presyncopal. He has been feeling week for approximately a month. According to admission note, he has recently been constipated. His could not get him off out of bed and called 911. In the emergency department it was felt that he was dehydrated and had renal insufficiency. Mild elevation in troponins were noted. The patient had to been eating well and was using diuretics. In the emergency department he received 3 liters, he was sent to [address] [place] [address], was getting his weight checked and fainted. He was found pulseless. Had electrical activity on the monitor and recovered. He was intubated by Anesthesia and transferred to the intensive care unit. Dr. Jack, the adult health clinical nurse specialist ordered a stat echo, which I read, which showed hyperdynamic left ventricular systolic function; but the right ventricle was dilated and most of it was akinetic. Only the very apex and the very base of the free wall showed contractility. The left ventricle also showed septal flattening consistent with right-sided overload. The patient had mild aortic insufficiency, mild mitral insufficiency, mild to moderate tricuspid insufficiency, and PA pressure was estimated at 42 mmHg. These findings were reviewed in person including images with Dr. Jack and discussing concerns about the possibility of a pulmonary embolus. The patient' s renal insufficiency precluded a CT scan, so a V/Q scan was performed, which was high probability for acute pulmonary embolus (multiple wedge shaped peripheral defects on perfusion images). PAST MEDICAL HISTORY: The patient has a past medical history of coronary artery disease, pulmonary emboli in the past, colon cancer, hypertension, dyslipidemia, and ECT therapy for depression. PAST SURGICAL HISTORY: Includes: Cardiac catheterization in 1996, (proximal LAD status post PTCA), [place], [place] ( Dr. Glenny Quick), cardiac catheterization 08/20/01 [facility] Dr. Deyvi Albarado, total left hip arthroplasty (June 2007 Dr. Lam Lopez), colon cancer resection 10/15/88 (Dr. Hola Judd), chemotherapy Dr. Mckinney , bilateral inguinal hernia repair 12/15/04 Dr. John Jean, right eye cataract May 2012, and in 1963 he had a slipped disk. MEDICATIONS: Inpatient medications include: 1. Tylenol p.r.n. 2. Lipitor 5 mg a day. 3. Peridex mouthwash. 4. Colace. 5. Norepinephrine drip. 6. Protonix 40 mg IV q.24 hours. 7. Propofol drip. 8. Senna. 9. Sodium chloride. 10. VESIcare. 11. Flomax 0.4 mg a day. 12. Desyrel. Outpatient medications include: 1. Chlorthalidone 25 mg a day. 2. Toprol XL 12.5 mg a day. 3. Vitamin B12. 4. Trazodone 50 mg p.r.n. 5. Flomax 0.4 mg a day. 6. VESIcare 5 mg b.i.d. 7. Mevacor 20 mg a day. 8. Aspirin 81 mg a day. ALLERGIES: He is allergic to IODINE. FAMILY HISTORY: Significant in that his father had a history of colon cancer. His mother had a history of stroke. SOCIAL HISTORY: The patient does volunteer work. Nonsmoker, nondrinker. is decision maker. REVIEW OF SYSTEMS: Unable to be obtained as the patient was intubated, no family present. PHYSICAL EXAM: The patient was in an ICU bed lying intubated. He opened his eyes with exam and talking, but was nonverbal and made no attempts to communicate. He is 5 feet 8 inches, weighs 160 pounds with a BMI of 24. Vital Signs: At the time I examined him, blood pressure 95/60, pulse was 131, respiratory rate was 20, and he was afebrile. The patient is a lean, elderly gentleman intubated, sedated, lying, appeared comfortable at about 15 degrees, intubated. Skin: Cheeks mildly hyperemic but warm and dry. No appreciable cyanosis. Mucous membranes are moist. Breath sounds were clear laterally and anteriorly. Coronary: S1 and S2, regular without murmurs or rubs appreciated. Abdomen: Nontender, no hepatomegaly, active bowel sounds, and soft. Lower extremities were free of edema and warm. The right lower extremity was slightly greater than the left. DIAGNOSTIC STUDIES/LAB DATA: Echo as above, hyperdynamic left ventricle, markedly dilated right ventricle, and severely hypokinetic right ventricle, and good valve function. ECG on admission at 7 in the morning showed normal sinus rhythm at 97 beats per minute, QRS axis 0, normal AV and IV conduction time with low volts in the limb leads, blocked PAC, ST segments flattened in the inferior leads, but all nonspecific unremarkable findings. Repeat ECG at 2:16 post arrest showed sinus tachycardia at 130 beats per minute and new right bundle-branch block, ST depression in the inferior and lateral leads that is quite diffuse, ST- elevation in lead aVR new. White count 13.9, hemoglobin 11.1, hematocrit 34, platelets 108, INR 1.09, PTT 27, D-dimer greater than 1050. ABG on arrival to unit pH 7.37, pCO2 of 32, pO2 of 417. Sodium 137, potassium 3.3, chloride 104, bicarb 22, BUN 36, creatinine 3.04, glucose 186, lactic acid 2.4 further elevated at 2.6, troponin #1 of 0.022 , troponin #2 of 0.55, troponin #3 of 0.70. BNP of 135. TSH 4.34. Urinalysis , no evidence of infection. V/Q scan as per history of present illness high probability. Renal ultrasound limited, but negative. SUMMARY: In summary, Mr. Valdez is an 81-year-old gentleman admitted with weakness, dehydration, renal insufficiency who suffered an acute arrest while getting weighed on the floor with pulseless electrical activity. His echocardiogram revealed severe right ventricular dilatation and hypokinesis and evidence of RV overload and followup V/Q scan confirmed he does have acute pulmonary embolus. He is undergoing thrombolytic treatment, heparinization in the unit, he was markedly hypotensive with intubation requiring pressors, which is not unexpected considering his severe RV dysfunction. Additionally, the patient does have underlying atherosclerotic heart disease and the elevation in troponin although likely represents RV strain, with his history of known distant LAD angioplasty, abnormal EKG there is undoubtedly a component of underlying atherosclerotic heart disease and ischemia due to stress from the pulmonary embolism and hypotension. The most important treatment is treatment of the pulmonary emboli to relieve right ventricular strain and improve oxygenation and supportive care as is being done. As blood pressure tolerates, I would recommend adding beta-marty back to protect the left ventricle. I agree with continuation of statin. Pending his clinical course, we can repeat his echo to follow RV systolic function, which I hope will improve. He is followed by Dr. Ayan Rodgers in our office and his most up-to-date stress test was May of 2014 showing and ejection fraction of 65% and normal perfusion. We could update a stress test prior to discharge, but we will wait till he is medically stabilized. Additional recommendations will be made pending his clinical course, he is a very ill patient and a high-risk patient. TIME SPENT: Total 1 hour and 15 minutes was spent on direct patient care. [id number]/[facility] #: [id number] CLIFF
[2017-01-20 07:37] LABS: Albumin 2.5 g/dL (3.2-5.2); Globulin 2.8 g/dL (2-4); Magnesium 1.9 mg/dL (1.9-2.7); Total Bilirubin 0.7 mg/dL (0.2-1.0); Total Protein 5.3 g/dL (6.4-8.9)
[2017-01-20] MEDS: Chlorhexidine MOUTHWASH 0.12%* 15 ML UDC SWISH SPIT SCH ×3 (08:19→21:47)
[2017-01-20] MEDS: Atorvastatin* 10 MG TAB PO SCH (08:20)
[2017-01-20] MEDS: Docusate CAP* 100 MG PO SCH ×2 (08:20→21:43)
[2017-01-20] MEDS: CMC: Solifenacin(NF) 5 MG TAB PO SCH ×2 (08:20→21:43)
[2017-01-20] MEDS: Tamsulosin CAP* 0.4 MG PO SCH (08:20)
[2017-01-20] MEDS ORDERED: Aspirin EC Low Dose* 81 MG TAB.EC PO SCH (09:00)
--- NOTE | 2017-01-20 11:38 | PN ---
Progress Note - Progress Note Note: Progress Note Critical Care 24 hour events: -intubated, off propofol now, responsive and follows coammands -s/p tpa last night for massive PE with rv dysfunction, shock -on heparin infusion now -mild oozing from central line sites noted only. -still on low dose levophed and NS infusion -family at bedside and updated. Tele: nsr Vitals: Vital Signs Temp 100.7 F 01/20/17 10:15 Pulse 87 01/20/17 10:15 Resp 12 01/20/17 10:15 BP 93/47 01/20/17 10:00 Pulse Ox 98 01/20/17 11:11 Intake & Output 01/19/17 01/20/17 01/20/17 18:59 06:59 18:59 Intake Total 1999 3536.6 0 Output Total 1350 1075 Balance 650 2461.6 0 Weight 160 lb 176 lb 2.389 oz Intake: IV Fluids 1999 2777 NS 2687 IVPB 161 NS 161 Medicated IV 598.6 CC - Norepinephrine/ 322 Levophed CC - Propofol/Diprivan 124.9 Heparin 151.7 Oral 0 Output: Santacruz 1350 1075 O2/Vent: AC 450/+5/40%, sat 100% Infusions: levophed, propofol, ns Current Medications: Acetaminophen (Tylenol Tab*) 650 mg PO Q4H PRN PRN Reason: FEVER/PAIN Atorvastatin Calcium (Lipitor*) 5 mg PO DAILY [facility] Last Admin: 01/20/17 08:20 Dose: Not Given Chlorhexidine Gluconate (Peridex Mouth Wash 0.12%*) 15 ml SWISH SPIT TID [facility] Last Admin: 01/20/17 08:19 Dose: 15 ml Docusate Sodium (Colace Cap*) 100 mg PO BID [facility] Last Admin: 01/20/17 08:20 Dose: Not Given Heparin Sodium (Porcine) (Heparin Vial(*)) 0 units IV .PER PROTOCOL [facility] Propofol (Diprivan*) 100 mls @ 8.709 mls/hr IV .(Initial Rate) [facility]; 20 MCG/KG/ MIN PRN Reason: Protocol Last Admin: 01/19/17 23:01 Dose: 6.9 mls/hr Norepinephrine Bitartrate (Levophed 16 Mcg/Ml Premix Bag*) 4,000 mcg in 250 mls @ 7.5 mls/hr IV .INITIAL RATE MICHAEL PRN Reason: 2 MCG/MIN Last Admin: 01/20/17 02:34 Dose: 22.5 mls/hr Heparin Sodium/Dextrose (Heparin Drip 25,000 Units(*)) 25,000 units in 500 mls @ 17.418 mls/hr IV .POST THROMBO MICHAEL; 12 UNIT/KG/HR PRN Reason: Protocol Last Admin: 01/19/17 21:33 Dose: 17.418 mls/hr Sodium Chloride (Ns 0.9% 1000 Ml*) 1,000 mls @ 75 mls/hr IV .per rate [facility] Pantoprazole Sodium (Protonix Iv*) 40 mg IV Q24H [facility] Last Admin: 01/19/17 23:56 Dose: 40 mg Senna (Senokot Tab*) 2 tab PO BEDTIME [facility] Last Admin: 01/19/17 21:09 Dose: Not Given Solifenacin (Vesicare(Nf)) 5 mg PO BID [facility] Last Admin: 01/20/17 08:20 Dose: Not Given Tamsulosin HCl (Flomax Cap*) 0.4 mg PO DAILY [facility] Last Admin: 01/20/17 08:20 Dose: Not Given Trazodone HCl (Desyrel Tab*) 50 mg PO BEDTIME PRN PRN Reason: SLEEP Physical Exam: General: awake, intubated, follows all commands Head: normocephalic, atraumatic HEENT: no pallor, no icterus, dry mucous membranes Neck: soft, supple, no jvd, no stridor CVS: not tachycardic, normal rhythm, no murmur Resp: bilateral air entry, no rhales, no wheeze, no rhonchi, no acc muscle use Abdomen: soft, nontender, nondistended, bowel sounds present Ext: pulses+, warm, no edema Skin: intact, no breakdown, no dryness Neuro: intubated, awake easily, alert, follows commands Labs: Laboratory Results - last 24 hr 01/19/17 01/19/17 01/19/17 11:55 14:05 14:05 WBC RBC Hgb Hct MCV MCH MCHC RDW Plt Count MPV Neut % (Auto) Lymph % (Auto) [place] % (Auto) Eos % (Auto) Baso % (Auto) Absolute Neuts (auto) Absolute Lymphs (auto) Absolute Monos (auto) Absolute Eos (auto) Absolute Basos (auto) Absolute Nucleated RBC Nucleated RBC % INR (Anticoag Therapy) APTT D-Dimer, Quantitative ABG pH ABG pCO2 ABG pO2 ABG HCO3 ABG O2 Saturation ABG Base Excess Sodium 137 Potassium 3.3 L Chloride 104 Carbon Dioxide 22 Anion Gap 11 BUN 36 H Creatinine 3.04 H Est GFR ( Amer) 25.4 Est GFR (Non-Af Amer) 19.8 BUN/Creatinine Ratio 11.8 Glucose 186 H Lactic Acid Calcium 8.1 L Magnesium 2.0 Total Bilirubin AST ALT Alkaline Phosphatase Total Creatine Kinase Troponin I 0.55 H* 0.70 H* B-Natriuretic Peptide 135 H Total Protein Albumin Globulin Albumin/Globulin Ratio Urine Color Urine Appearance Urine pH Ur Specific [place] Urine Protein Urine Ketones Urine Blood Urine Nitrate Urine Bilirubin Urine Urobilinogen Ur Leukocyte Esterase Urine WBC (Auto) Urine RBC (Auto) Urine Bacteria Ur Random Creatinine Ur Random Sodium Urine Glucose 01/19/17 01/19/17 01/19/17 14:05 14:05 14:05 WBC RBC Hgb Hct MCV MCH MCHC RDW Plt Count MPV Neut % (Auto) Lymph % (Auto) [place] % (Auto) Eos % (Auto) Baso % (Auto) Absolute Neuts (auto) Absolute Lymphs (auto) Absolute Monos (auto) Absolute Eos (auto) Absolute Basos (auto) Absolute Nucleated RBC Nucleated RBC % INR (Anticoag Therapy) APTT 27.2 D-Dimer, Quantitative > 1050 H ABG pH ABG pCO2 ABG pO2 ABG HCO3 ABG O2 Saturation ABG Base Excess Sodium Potassium Chloride Carbon Dioxide Anion Gap BUN Creatinine Est GFR ( Amer) Est GFR (Non-Af Amer) BUN/Creatinine Ratio Glucose Lactic Acid 2.6 H* Calcium Magnesium Total Bilirubin AST ALT Alkaline Phosphatase Total Creatine Kinase Troponin I B-Natriuretic Peptide Total Protein Albumin Globulin Albumin/Globulin Ratio Urine Color Yellow Urine Appearance Clear Urine pH 5.0 Ur Specific [place] 1.017 Urine Protein Negative Urine Ketones Negative Urine Blood 2+ H Urine Nitrate Negative Urine Bilirubin Negative Urine Urobilinogen Negative Ur Leukocyte Esterase Negative Urine WBC (Auto) Absent Urine RBC (Auto) 2+(6-10/hpf) H Urine Bacteria Absent Ur Random Creatinine Ur Random Sodium Urine Glucose Negative 01/19/17 01/19/17 01/19/17 14:05 14:23 14:50 WBC 13.9 H RBC 3.70 L Hgb 11.1 L Hct 34 L MCV 92 MCH 30 MCHC 33 RDW 14 Plt Count 108 L MPV 8 Neut % (Auto) 86.1 H Lymph % (Auto) 3.7 L [place] % (Auto) 7.6 Eos % (Auto) 2.3 Baso % (Auto) 0.3 Absolute Neuts (auto) 12.0 H Absolute Lymphs (auto) 0.5 L Absolute Monos (auto) 1.1 H Absolute Eos (auto) 0.3 Absolute Basos (auto) 0 Absolute Nucleated RBC 0.01 Nucleated RBC % 0 INR (Anticoag Therapy) APTT D-Dimer, Quantitative ABG pH 7.37 ABG pCO2 32 L ABG pO2 417 H ABG HCO3 20.3 ABG O2 Saturation 99.9 H ABG Base Excess -5.9 L Sodium Potassium Chloride Carbon Dioxide Anion Gap BUN Creatinine Est GFR ( Amer) Est GFR (Non-Af Amer) BUN/Creatinine Ratio Glucose Lactic Acid Calcium Magnesium Total Bilirubin AST ALT Alkaline Phosphatase Total Creatine Kinase Troponin I B-Natriuretic Peptide Total Protein Albumin Globulin Albumin/Globulin Ratio Urine Color Urine Appearance Urine pH Ur Specific [place] Urine Protein Urine Ketones Urine Blood Urine Nitrate Urine Bilirubin Urine Urobilinogen Ur Leukocyte Esterase Urine WBC (Auto) Urine RBC (Auto) Urine Bacteria Ur Random Creatinine 159.58 Ur Random Sodium 71 Urine Glucose 01/19/17 01/20/17 01/20/17 21:30 03:48 03:48 WBC 10.9 H RBC 3.26 L Hgb 10.0 L Hct 30 L MCV 92 MCH 31 MCHC 33 RDW 14 Plt Count 107 L MPV 8 Neut % (Auto) 76.6 Lymph % (Auto) 8.8 L [place] % (Auto) 10.1 H Eos % (Auto) 4.3 Baso % (Auto) 0.2 Absolute Neuts (auto) 8.3 H Absolute Lymphs (auto) 1.0 Absolute Monos (auto) 1.1 H Absolute Eos (auto) 0.5 Absolute Basos (auto) 0 Absolute Nucleated RBC 0 Nucleated RBC % 0 INR (Anticoag Therapy) APTT 30.4 D-Dimer, Quantitative ABG pH ABG pCO2 ABG pO2 ABG HCO3 ABG O2 Saturation ABG Base Excess Sodium 139 Potassium 3.3 L Chloride 109 Carbon Dioxide 22 Anion Gap 8 BUN 31 H Creatinine 1.57 H Est GFR ( Amer) 54.5 Est GFR (Non-Af Amer) 42.4 BUN/Creatinine Ratio 19.7 Glucose 126 H Lactic Acid Calcium 7.6 L Magnesium 1.9 Total Bilirubin 0.70 AST 21 ALT 16 Alkaline Phosphatase 49 Total Creatine Kinase 149 Troponin I B-Natriuretic Peptide Total Protein 5.3 L Albumin 2.5 L Globulin 2.8 Albumin/Globulin Ratio 0.9 L Urine Color Urine Appearance Urine pH Ur Specific [place] Urine Protein Urine Ketones Urine Blood Urine Nitrate Urine Bilirubin Urine Urobilinogen Ur Leukocyte Esterase Urine WBC (Auto) Urine RBC (Auto) Urine Bacteria Ur Random Creatinine Ur Random Sodium Urine Glucose 01/20/17 01/20/17 03:48 09:45 WBC RBC Hgb Hct MCV MCH MCHC RDW Plt Count MPV Neut % (Auto) Lymph % (Auto) [place] % (Auto) Eos % (Auto) Baso % (Auto) Absolute Neuts (auto) Absolute Lymphs (auto) Absolute Monos (auto) Absolute Eos (auto) Absolute Basos (auto) Absolute Nucleated RBC Nucleated RBC % INR (Anticoag Therapy) 1.16 H APTT 53.8 H 40.2 H D-Dimer, Quantitative ABG pH ABG pCO2 ABG pO2 ABG HCO3 ABG O2 Saturation ABG Base Excess Sodium Potassium Chloride Carbon Dioxide Anion Gap BUN Creatinine Est GFR ( Amer) Est GFR (Non-Af Amer) BUN/Creatinine Ratio Glucose Lactic Acid Calcium Magnesium Total Bilirubin AST ALT Alkaline Phosphatase Total Creatine Kinase Troponin I B-Natriuretic Peptide Total Protein Albumin Globulin Albumin/Globulin Ratio Urine Color Urine Appearance Urine pH Ur Specific [place] Urine Protein Urine Ketones Urine Blood Urine Nitrate Urine Bilirubin Urine Urobilinogen Ur Leukocyte Esterase Urine WBC (Auto) Urine RBC (Auto) Urine Bacteria Ur Random Creatinine Ur Random Sodium Urine Glucose Imaging: CXR 01/19 - ?small infiltrate/atlectasis left lower lobe ECHO 01/19 - reviewed - RV dilated, hypokinetic, apex moving; no effusion, LV mild LV, D shaped septum V/Q 01/19 - high prob of PE EKG 01/20 am - RBBB pattern improved, ST dep improved, 1st deg AVB Assessment: 81y M pmhx Depression, HTN, HLD, CAD s/p PCI 20+ yrs back, h/o PE 20 + yrs back ? (family unclear); who came to ER for syncopal episode, dizziness, weakness for days. He was found to be in acute kidney injury, mild lactic acid elevation. He was admitted with diagnosis of possible volume depletion. BP initially were in the 80s, sats low 90s, afebrile. He was on the medical floor and after 3 liters of IVF, BP was in the upper 80s-low 90s. He was being gotten up for weights and vitals when he syncopised and had agonal breathing, intubated by anesthesia. He had a brief loss of pulse, but they said Tele monitoring showed a cardiac rhythm, CPR and epi x1 was given with ROSC. On pressors in ICU, initially hypoxic. -Massive Pulmonary Embolism -Cardiogenic Shock 2/2 to acute RV systolic dysfunction 2/2 to pressure overload /PE -TANGELA, 2/2 to hypotension + pre-renal azotemia from volume depletion -Acute Hypoxic Respiratory Failure Plan: Neuro- d/c propofol, neuro checks continued while on heparin. CVS- cont to wean levophed, BP improved, Cr improved, making urine. repeat echo tomorrow. EKG less RV strain. s/p tpa. on heparin infusion, follow ptts. cardiology f/u appreciated. may need low dose inotrope for RV support if he cant come off pressors, discussed with cardiology. dec NS infusion, cant do CVP monitoring now. Resp- intubated, on AC fio2 40%, abg now, will plan for vent weaning later today or even tomorrow due to recent tpa. s/p tpa for massive PE, cont heparin infusion now ID- low grade temps. Wbc improved. IV abx x1 dose given, wbc already down. no clear sepsis source identified. will continue zosyn iv for now. blood cultures were not sent it appears, will send one sample later today, given recent tpa. GI-NPO Renal- TANGELA, may be from hypovolemia from poor po intake vs shock/ischemic ATN. IVF, Pressors. improved, making urine, on NS infusion, dec to 75cc/hr Heme- hg down to 10, no bleeding noted, cont to monitor, plt >100k, monitoring. off aspirin due to recent tpa, will restart tomorrow. on heparin IV. Endo- monitor FS Musculsk- pressure ulcer prophylaxis Wounds- none Nutrition- NPO DVT prophylaxis: - GI prophylaxis:- Central Line: right fem 01/19 Arterial Line: right fem 01/19 Santacruz Cathetor: yes Disposition: ICU for respiratory failure, hypotension and massive pulmonary embolism Code Status: FULL CODE Total Critical Care time is 45 minutes, excluding procedures/teaching Yves Jack MD [facility] (Electronically Signed)
[2017-01-20 11:57] LABS: FIO2 40; Pressure Support 10
[2017-01-20 11:59] LABS: PCO2 Arterial 28 mmHg (35-45)
--- NOTE | 2017-01-20 15:00 | RAD ---
INDICATION: Assess for DVT. High probability for pulmonary embolism on ventilation perfusion exam. COMPARISON: January 19, 2017 ventilation perfusion scan. April 13, 2010 ultrasound documenting thrombus at the bilateral popliteal veins. TECHNIQUE: Ruth scale, color Doppler, and spectral analysis of the deep veins of the BILATERAL lower extremities. Vessel compression, phasicity, and augmentation assessed. REPORT: RIGHT lower extremity: Unable to visualize the RIGHT common femoral, great saphenous vein at the saphenous femoral junction, or proximal profunda femoral vein limiting assessment. Flow demonstrated in the distal RIGHT profunda femoral vein. The proximal, mid, and distal segments of the femoral vein are patent and demonstrate respiratory phasicity. Patent RIGHT popliteal vein with respiratory phasicity. Flow documented in one of the paired posterior tibial veins. The other RIGHT posterior tibial vein demonstrates occlusive thrombosis. The RIGHT peroneal veins could not be visualized. 8.0 x 1.4 x 3.4 cm complex RIGHT popliteal cyst. LEFT lower extremity: Patent LEFT common femoral vein. Thrombus at the LEFT saphenous femoral junction and proximal and mid superficial femoral veins and popliteal vein. The LEFT posterior tibial veins appear patent. The LEFT peroneal veins could not be visualized. IMPRESSION: 1. The RIGHT common femoral, great saphenous vein at the saphenous femoral junction, and proximal segment of the profunda femoral vein could not be visualized limiting assessment. Distal to this the profunda femoral, superficial femoral, and popliteal RIGHT lower extremity veins appear patent and demonstrate normal respiratory phasicity consistent with patency of the more proximal nonvisualized RIGHT lower extremity veins. Occlusive thrombosis of one of the RIGHT posterior tibial veins. 2. Nonocclusive hyperechoic thrombus at the LEFT saphenous femoral junction, superficial femoral vein, and popliteal vein.
[2017-01-20] MEDS ORDERED: fentaNYL* 50 MCG/ML 2 ML VIAL (100 MCG VIAL) IV PRN (15:32)
[2017-01-20] MEDS: Senna TAB PO SCH (21:43)
[2017-01-20] MEDS: Pantoprazole IV* 40 MG IV SCH (21:47)
[2017-01-21] MEDS: Heparin DRIP 25,000 UNITS(*) 25,000 UNITS/500 ML BAG IV SCH (02:03)
[2017-01-21] MEDS: NS 0.9% 1000 ML* 1,000 ML IV SCH (02:17)
[2017-01-21 06:23] LABS: Hematocrit 25 % (42-52); Hemoglobin 8.2 g/dl (14.0-18.0); Mean Corpuscular HGB Conc 33 g/dl (31-36); Mean Corpuscular Hemoglobin 30 pg (27-31); Mean Corpuscular Volume 90 fL (80-94); Mean Platelet Volume 8 um3 (7.4-10.4); Red Blood Count 2.72 10^6/ul (4.0-5.4); Red Cell Distribution Width 14 % (10.5-15)
[2017-01-21 06:26] LABS: Comments Flag Yes
[2017-01-21 06:27] LABS: Add Diff/Slide Review? Slide Review Added
[2017-01-21 06:39] LABS: BUN/Creatinine Ratio 23.7 (8-20); Calcium 7.6 mg/dL (8.6-10.3); EGFR African American 95.1 (>60); EGFR Non-African American 73.9 (>60); Potassium 2.9 mmol/L (3.5-5.0)
--- NOTE | 2017-01-21 07:21 | RAD ---
INDICATION: Tachycardia COMPARISON: Most recent comparison chest x-ray is dated January 19, 2017 TECHNIQUE: Single AP portable view of the chest was obtained. FINDINGS: Image quality is compromised due to the relative inferiority of a portable chest x-ray. The endotracheal tube remains in appropriate position approximately 2 cm below the clavicular heads. The heart and mediastinum exhibit normal size and contour. Blunting of the left costophrenic angle and obscuration of left hemidiaphragm could be the consequence of consolidation and/or pleural effusion. The lungs are otherwise well aerated. Visualized bones are normal for the patient's age. IMPRESSION: Possible pleural effusion and/or atelectasis the left lung base.
--- NOTE | 2017-01-21 08:16 | RAD ---
Indication: Near syncope. Dehydration. Question infiltrate. Comparison: January 20, 2017 Technique: Upright AP 0608 hours Report: Endotracheal tube tip 4.7 cm above the Lurdes. Clear lungs and pleural spaces. Probable LEFT epicardial fat pad extending to the costophrenic angle although a small effusion is not entirely excluded. Upper normal heart size. Unremarkable central pulmonary vasculature. Epigastric and LEFT upper quadrant surgical clips. IMPRESSION: No compelling evidence for pneumonia or other acute cardiopulmonary process.
[2017-01-21] MEDS ORDERED: Potassium Chloride LIQUID* 20 MEQ PACKET PO ONE (08:43)
[2017-01-21] MEDS: Chlorhexidine MOUTHWASH 0.12%* 15 ML UDC SWISH SPIT SCH ×3 (09:28→21:39)
[2017-01-21] MEDS: KCL 20 MEQ/100 ML IVPREMIX* 20 MEQ/100 ML BAG IV SCH ×3 (09:28→13:05)
[2017-01-21] MEDS: CMC: Solifenacin(NF) 5 MG TAB PO SCH ×2 (09:29→21:39)
[2017-01-21] MEDS: Tamsulosin CAP* 0.4 MG PO SCH (09:29)
[2017-01-21] MEDS: Docusate CAP* 100 MG PO SCH ×2 (09:29→21:39)
[2017-01-21] MEDS: Atorvastatin* 10 MG TAB PO SCH (09:29)
[2017-01-21 09:46] LABS: FIO2 35
[2017-01-21 09:50] LABS: PCO2 Arterial 32 mmHg (35-45)
--- NOTE | 2017-01-21 11:25 | PN ---
Progress Note - Progress Note Date of Service: 01/21/17 Note: Progress Note Critical Care 24 hour events: -intubated, follows commands, on low dose levophed -on heparin infusion, still sedement and tinge of blood in urine noted -on 35% fio2 on PS -less febrile, started on zosyn yesterday -no other events noted. Tele: nsr Vitals: Vital Signs Temp 99.6 F 01/21/17 10:30 Pulse 97 01/21/17 10:30 Resp 15 01/21/17 10:30 BP 94/60 01/21/17 10:00 Pulse Ox 100 01/21/17 10:30 Intake & Output 01/20/17 01/21/17 01/21/17 18:59 06:59 18:59 Intake Total 987 1304 Output Total 475 800 Balance 512 504 Weight 182 lb 5.156 oz Intake: IV Fluids 872 456 NS 872 456 IVPB 274 NS 274 Medicated IV 115 574 CC - Norepinephrine/ 258 Levophed Heparin 115 316 Oral 0 Output: Santacruz 475 800 O2/Vent: PS 10/5, 35%, sat 100% Infusions: levophed 2mcg/min, ns 75cc/hr, heparin IV Current Medications: Acetaminophen (Tylenol Tab*) 650 mg PO Q4H PRN PRN Reason: FEVER/PAIN Atorvastatin Calcium (Lipitor*) 5 mg PO DAILY [facility] Last Admin: 01/21/17 09:29 Dose: Not Given Chlorhexidine Gluconate (Peridex Mouth Wash 0.12%*) 15 ml SWISH SPIT TID [facility] Last Admin: 01/21/17 09:28 Dose: 15 ml Docusate Sodium (Colace Cap*) 100 mg PO BID [facility] Last Admin: 01/21/17 09:29 Dose: Not Given Fentanyl Citrate (Fentanyl*) 25 mcg IV Q1H PRN PRN Reason: PAIN/DISCOMFORT Last Admin: 01/20/17 15:42 Dose: 25 mcg Heparin Sodium (Porcine) (Heparin Vial(*)) 0 units IV .PER PROTOCOL [facility] Propofol (Diprivan*) 100 mls @ 8.709 mls/hr IV .(Initial Rate) [facility]; 20 MCG/KG/ MIN PRN Reason: Protocol Last Admin: 01/19/17 23:01 Dose: 6.9 mls/hr Norepinephrine Bitartrate (Levophed 16 Mcg/Ml Premix Bag*) 4,000 mcg in 250 mls @ 7.5 mls/hr IV .INITIAL RATE MICHAEL PRN Reason: 2 MCG/MIN Last Admin: 01/20/17 22:56 Dose: 15 mls/hr Heparin Sodium/Dextrose (Heparin Drip 25,000 Units(*)) 25,000 units in 500 mls @ 17.418 mls/hr IV .POST THROMBO MICHAEL; 12 UNIT/KG/HR PRN Reason: Protocol Last Admin: 01/21/17 02:03 Dose: 19.4 mls/hr Sodium Chloride (Ns 0.9% 1000 Ml*) 1,000 mls @ 75 mls/hr IV .per rate [facility] Last Admin: 01/21/17 02:17 Dose: 75 mls/hr Piperacillin Sod/Tazobactam (Sod 3.375 gm/ Sodium Chloride) 100 mls @ 25 mls/ hr IVPB Q8H [facility] Last Admin: 01/21/17 04:06 Dose: 25 mls/hr Potassium Chloride (Potassium Chloride 20 Meq/100 Ml Ivpremix*) 20 meq in 100 mls @ 50 mls/hr IV Q2H [facility] Stop: 01/21/17 14:59 Last Admin: 01/21/17 09:28 Dose: 50 mls/hr Pantoprazole Sodium (Protonix Iv*) 40 mg IV Q24H [facility] Last Admin: 01/20/17 21:47 Dose: 40 mg Senna (Senokot Tab*) 2 tab PO BEDTIME [facility] Last Admin: 01/20/17 21:43 Dose: Not Given Solifenacin (Vesicare(Nf)) 5 mg PO BID [facility] Last Admin: 01/21/17 09:29 Dose: Not Given Tamsulosin HCl (Flomax Cap*) 0.4 mg PO DAILY [facility] Last Admin: 01/21/17 09:29 Dose: Not Given Trazodone HCl (Desyrel Tab*) 50 mg PO BEDTIME PRN PRN Reason: SLEEP Physical Exam: General: awake, intubated, follows all commands Head: normocephalic, atraumatic HEENT: no pallor, no icterus, dry mucous membranes Neck: soft, supple, no jvd, no stridor CVS: not tachycardic, normal rhythm, no murmur Resp: bilateral air entry, no rhales, no wheeze, no rhonchi, no acc muscle use Abdomen: soft, nontender, nondistended, bowel sounds present Ext: pulses+, warm, no edema Skin: intact, no breakdown, no dryness Neuro: intubated, awake easily, alert, follows commands Labs: Laboratory Results - last 24 hr 01/20/17 01/20/17 01/21/17 11:50 18:45 03:20 WBC RBC Hgb Hct MCV MCH MCHC RDW Plt Count MPV Neut % (Auto) Lymph % (Auto) [place] % (Auto) Eos % (Auto) Baso % (Auto) Absolute Neuts (auto) Absolute Lymphs (auto) Absolute Monos (auto) Absolute Eos (auto) Absolute Basos (auto) Absolute Nucleated RBC Nucleated RBC % APTT 42.3 H 68.8 H Patient Temperature Not Reportable ABG pH 7.44 ABG pCO2 28 L ABG pO2 83 ABG HCO3 21.6 ABG O2 Saturation 98.7 H ABG Base Excess -4.3 L Respiration Rate Not Reportable O2 Delivery Device vent Ventilator Type Not Reportable Vent Mode spont FiO2 40 Inspiratory Time Not Reportable PEEP 5 Pressure Support 10 Pressure Control Not Reportable EPAP Not Reportable IPAP Not Reportable BiPAP Not Reportable Sodium Potassium Chloride Carbon Dioxide Anion Gap BUN Creatinine Est GFR ( Amer) Est GFR (Non-Af Amer) BUN/Creatinine Ratio Glucose Calcium 01/21/17 01/21/17 01/21/17 06:00 06:00 06:00 WBC 10.0 RBC 2.72 L Hgb 8.2 L Hct 25 L MCV 90 MCH 30 MCHC 33 RDW 14 Plt Count 98 L MPV 8 Neut % (Auto) 74.0 Lymph % (Auto) 10.7 L [place] % (Auto) 10.9 H Eos % (Auto) 4.2 Baso % (Auto) 0.2 Absolute Neuts (auto) 7.4 Absolute Lymphs (auto) 1.1 Absolute Monos (auto) 1.1 H Absolute Eos (auto) 0.4 Absolute Basos (auto) 0 Absolute Nucleated RBC 0 Nucleated RBC % 0 APTT 58.3 H Patient Temperature ABG pH ABG pCO2 ABG pO2 ABG HCO3 ABG O2 Saturation ABG Base Excess Respiration Rate O2 Delivery Device Ventilator Type Vent Mode FiO2 Inspiratory Time PEEP Pressure Support Pressure Control EPAP IPAP BiPAP Sodium 139 Potassium 2.9 L Chloride 107 Carbon Dioxide 21 L Anion Gap 11 BUN 23 Creatinine 0.97 Est GFR ( Amer) 95.1 Est GFR (Non-Af Amer) 73.9 BUN/Creatinine Ratio 23.7 H Glucose 116 H Calcium 7.6 L 01/21/17 09:41 WBC RBC Hgb Hct MCV MCH MCHC RDW Plt Count MPV Neut % (Auto) Lymph % (Auto) [place] % (Auto) Eos % (Auto) Baso % (Auto) Absolute Neuts (auto) Absolute Lymphs (auto) Absolute Monos (auto) Absolute Eos (auto) Absolute Basos (auto) Absolute Nucleated RBC Nucleated RBC % APTT Patient Temperature Not Reportable ABG pH 7.46 H ABG pCO2 32 L ABG pO2 123 H ABG HCO3 24.3 ABG O2 Saturation 99.1 H ABG Base Excess -0.8 Respiration Rate Not Reportable O2 Delivery Device Ventilator Type Not Reportable Vent Mode spont FiO2 35 Inspiratory Time Not Reportable PEEP Not Reportable Pressure Support Not Reportable Pressure Control Not Reportable EPAP Not Reportable IPAP Not Reportable BiPAP Not Reportable Sodium Potassium Chloride Carbon Dioxide Anion Gap BUN Creatinine Est GFR ( Amer) Est GFR (Non-Af Amer) BUN/Creatinine Ratio Glucose Calcium Imaging: CXR 01/19 - ?small infiltrate/atlectasis left lower lobe ECHO 01/19 - reviewed - RV dilated, hypokinetic, apex moving; no effusion, LV mild LV, D shaped septum V/Q 01/19 - high prob of PE cxr 01/21 - ett above shwetha, no infiltrate noted EKG 01/20 am - RBBB pattern improved, ST dep improved, 1st deg AVB Assessment: 81y M pmhx Depression, HTN, HLD, CAD s/p PCI 20+ yrs back, h/o PE 20 + yrs back ? (family unclear); who came to ER for syncopal episode, dizziness, weakness for days. He was found to be in acute kidney injury, mild lactic acid elevation. He was admitted with diagnosis of possible volume depletion. BP initially were in the 80s, sats low 90s, afebrile. He was on the medical floor and after 3 liters of IVF, BP was in the upper 80s-low 90s. He was being gotten up for weights and vitals when he syncopised and had agonal breathing, intubated by anesthesia. He had a brief loss of pulse, but they said Tele monitoring showed a cardiac rhythm, CPR and epi x1 was given with ROSC. On pressors in ICU, initially hypoxic. -Massive Pulmonary Embolism -Cardiogenic Shock 2/2 to acute RV systolic dysfunction 2/2 to pressure overload /PE -TANGELA, 2/2 to hypotension + pre-renal azotemia from volume depletion -Acute Hypoxic Respiratory Failure Plan: Neuro- off propofol, follows commands. CVS- still on levophed. NS 75cc/hour. ECHO done this AM, awaiting Read for RV. may need low dose inotrope, but BP may come up after extubation. family states he runs on lower side. Maintian MAP>65. Replete K first. Resp- intubated, PS trial. ABG reviewed. CXR reviewed. plan for extubation once IV KCL given. discusse with family. ID- temps improved, no clear source. could be reactive from PE/DVT. WBC normal. cont zosyn and reassess in 24-48 hours. blood cx sent x1 GI- NPO Renal- TANGELA, improved, cont NS 75cc/hour, remains on pressors. hematuria improved , more sediment and lightly red only. Heme- hg down to 8, may be from hematuria as source. recheck cbc at 2pm, cont heparin, therapeutic ptt in 50s. plt >100k, monitoring. will cont asa for CAD once hematuria improved. Endo- monitor FS Musculsk- pressure ulcer prophylaxis Wounds- none Nutrition- NPO DVT prophylaxis: - GI prophylaxis:- Central Line: right fem 01/19 Arterial Line: right fem 01/19 Santacruz Cathetor: yes Disposition: ICU for respiratory failure, hypotension and massive pulmonary embolism Code Status: FULL CODE Total Critical Care time is 45 minutes, excluding procedures/teaching Yves Jack MD Bureau Director (Electronically Signed)
[2017-01-21 14:25] LABS: Hematocrit 22 % (42-52); Hemoglobin 7.4 g/dl (14.0-18.0); Mean Corpuscular HGB Conc 33 g/dl (31-36); Mean Corpuscular Hemoglobin 30 pg (27-31); Mean Corpuscular Volume 91 fL (80-94); Mean Platelet Volume 8 um3 (7.4-10.4); Red Blood Count 2.44 10^6/ul (4.0-5.4); Red Cell Distribution Width 14 % (10.5-15); White Blood Count 9.6 10^3/ul (3.5-10.8)
[2017-01-21] MEDS: Senna TAB PO SCH (21:39)
[2017-01-21] MEDS: Pantoprazole IV* 40 MG IV SCH (21:39)
[2017-01-21 22:30] LABS: BUN/Creatinine Ratio 20.7 (8-20); Calcium 7.5 mg/dL (8.6-10.3); EGFR African American 107.8 (>60); EGFR Non-African American 83.8 (>60); Potassium 3.3 mmol/L (3.5-5.0)
[2017-01-22 00:33] LABS: Hematocrit 27 % (42-52); Hemoglobin 9.1 g/dl (14.0-18.0); Mean Corpuscular HGB Conc 34 g/dl (31-36); Mean Corpuscular Hemoglobin 31 pg (27-31); Mean Corpuscular Volume 90 fL (80-94); Mean Platelet Volume 8 um3 (7.4-10.4); Red Blood Count 2.98 10^6/ul (4.0-5.4); Red Cell Distribution Width 14 % (10.5-15); White Blood Count 8.5 10^3/ul (3.5-10.8)
[2017-01-22 00:34] LABS: Comments Flag Yes
[2017-01-22] MEDS: KCL 20 MEQ/100 ML IVPREMIX* 20 MEQ/100 ML BAG IV SCH ×2 (01:11→03:25)
[2017-01-22] MEDS: NS 0.9% 1000 ML* 1,000 ML IV SCH ×2 (02:59→16:42)
[2017-01-22 05:56] LABS: Hematocrit 28 % (42-52); Hemoglobin 9.5 g/dl (14.0-18.0); Mean Corpuscular HGB Conc 34 g/dl (31-36); Mean Corpuscular Hemoglobin 30 pg (27-31); Mean Corpuscular Volume 90 fL (80-94); Mean Platelet Volume 8 um3 (7.4-10.4); Red Blood Count 3.12 10^6/ul (4.0-5.4); Red Cell Distribution Width 14 % (10.5-15); White Blood Count 8.1 10^3/ul (3.5-10.8)
[2017-01-22 05:58] LABS: Comments Flag Yes
[2017-01-22 06:06] LABS: BUN/Creatinine Ratio 17.9 (8-20); Calcium 7.6 mg/dL (8.6-10.3); EGFR African American 112.2 (>60); EGFR Non-African American 87.3 (>60); Potassium 3.6 mmol/L (3.5-5.0)
[2017-01-22] MEDS: Heparin DRIP 25,000 UNITS(*) 25,000 UNITS/500 ML BAG IV SCH (06:26)
[2017-01-22] MEDS ORDERED: Potassium Chlor TAB* 20 MEQ TAB.ER PO ONE (08:27)
[2017-01-22] MEDS: Atorvastatin* 10 MG TAB PO SCH (09:04)
[2017-01-22] MEDS: Tamsulosin CAP* 0.4 MG PO SCH (09:04)
[2017-01-22] MEDS: Docusate CAP* 100 MG PO SCH ×2 (09:04→21:37)
[2017-01-22] MEDS: Chlorhexidine MOUTHWASH 0.12%* 15 ML UDC SWISH SPIT SCH (09:05)
[2017-01-22] MEDS: CMC: Solifenacin(NF) 5 MG TAB PO SCH ×2 (09:15→21:38)
--- NOTE | 2017-01-22 10:08 | PN ---
Progress Note - Progress Note Date of Service: 01/22/17 Note: Progress Note Critical Care 24 hour events: -extubated yesterday, no resp distress overnight -weaned off levophed now, on IVF ns 75cc/hour -tolerating PO intake -still ongoing hematuria; transfused 2 units prbc yesterday, hg stable today. -less febrile now, awake alert oriented, at bedside. Tele: nsr Vitals: Vital Signs Temp 99.5 F 01/22/17 09:15 Pulse 81 01/22/17 09:15 Resp 19 01/22/17 09:15 BP 105/55 01/22/17 07:00 Pulse Ox 95 01/22/17 09:15 Intake & Output 01/21/17 01/22/17 01/22/17 18:59 06:59 18:59 Intake Total 915 2502 240 Output Total 475 1015 Balance 440 1487 240 Weight 182 lb 15.739 oz Intake: IV Fluids 480 1432 NS 480 1227 NS (0.9%) 20 meq KCL 205 IVPB 212 NS 212 Medicated IV 195 268 CC - Norepinephrine/ 73 Levophed Heparin 122 268 Oral 240 240 Packed Cells 590 Output: Gage 475 1015 Other: Date of Last Bowel 01/21/17 Movement # Bowel Movements 1 Estimated Stool Amount Medium O2/Vent: NC Infusions: NS 75cc/hr; heparin infusion Current Medications: Acetaminophen (Tylenol Tab*) 650 mg PO Q4H PRN PRN Reason: FEVER/PAIN Atorvastatin Calcium (Lipitor*) 5 mg PO DAILY [facility] Last Admin: 01/22/17 09:04 Dose: 5 mg Chlorhexidine Gluconate (Peridex Mouth Wash 0.12%*) 15 ml SWISH SPIT TID [facility] Last Admin: 01/22/17 09:05 Dose: Not Given Docusate Sodium (Colace Cap*) 100 mg PO BID [facility] Last Admin: 01/22/17 09:04 Dose: 100 mg Fentanyl Citrate (Fentanyl*) 25 mcg IV Q1H PRN PRN Reason: PAIN/DISCOMFORT Last Admin: 01/20/17 15:42 Dose: 25 mcg Heparin Sodium (Porcine) (Heparin Vial(*)) 0 units IV .PER PROTOCOL [facility] Propofol (Diprivan*) 100 mls @ 8.709 mls/hr IV .(Initial Rate) [facility]; 20 MCG/KG/ MIN PRN Reason: Protocol Last Admin: 01/19/17 23:01 Dose: 6.9 mls/hr Norepinephrine Bitartrate (Levophed 16 Mcg/Ml Premix Bag*) 4,000 mcg in 250 mls @ 7.5 mls/hr IV .INITIAL RATE MICHAEL PRN Reason: 2 MCG/MIN Last Admin: 01/20/17 22:56 Dose: 15 mls/hr Heparin Sodium/Dextrose (Heparin Drip 25,000 Units(*)) 25,000 units in 500 mls @ 17.418 mls/hr IV .POST THROMBO MICHAEL; 12 UNIT/KG/HR PRN Reason: Protocol Last Admin: 01/22/17 06:26 Dose: 19.4 mls/hr Sodium Chloride (Ns 0.9% 1000 Ml*) 1,000 mls @ 75 mls/hr IV .per rate [facility] Last Admin: 01/22/17 02:59 Dose: 75 mls/hr Piperacillin Sod/Tazobactam (Sod 3.375 gm/ Sodium Chloride) 100 mls @ 25 mls/ hr IVPB Q8H [facility] Last Admin: 01/22/17 09:04 Dose: 25 mls/hr Pantoprazole Sodium (Protonix Iv*) 40 mg IV Q24H [facility] Last Admin: 01/21/17 21:39 Dose: 40 mg Senna (Senokot Tab*) 2 tab PO BEDTIME [facility] Last Admin: 01/21/17 21:39 Dose: Not Given Solifenacin (Vesicare(Nf)) 5 mg PO BID [facility] Last Admin: 01/22/17 09:15 Dose: 5 mg Tamsulosin HCl (Flomax Cap*) 0.4 mg PO DAILY [facility] Last Admin: 01/22/17 09:04 Dose: 0.4 mg Trazodone HCl (Desyrel Tab*) 50 mg PO BEDTIME PRN PRN Reason: SLEEP Physical Exam: General: awake, alert, oriented, no distress, follows commands Head: normocephalic, atraumatic HEENT: no pallor, no icterus, moist mucous membranes Neck: soft, supple, no jvd, no stridor CVS: normal rate, normal rhythm, no murmur Resp: bilateral air entry, no rhales, no wheeze, no rhonchi, no acc muscle use Abdomen: soft, nontender, nondistended, bowel sounds present Ext: pulses+, warm, no edema Skin: intact, no breakdown, no dryness Neuro: awake, alert, follows commands, moves all ext Labs: Laboratory Results - last 24 hr 01/21/17 01/21/17 01/21/17 11:45 14:05 14:05 WBC 9.6 RBC 2.44 L Hgb 7.4 L Hct 22 L MCV 91 MCH 30 MCHC 33 RDW 14 Plt Count 102 L MPV 8 Neut % (Auto) Lymph % (Auto) [place] % (Auto) Eos % (Auto) Baso % (Auto) Absolute Neuts (auto) Absolute Lymphs (auto) Absolute Monos (auto) Absolute Eos (auto) Absolute Basos (auto) Absolute Nucleated RBC Nucleated RBC % APTT 49.2 H Sodium Potassium 3.9 Chloride Carbon Dioxide Anion Gap BUN Creatinine Est GFR ( Amer) Est GFR (Non-Af Amer) BUN/Creatinine Ratio Glucose Calcium Blood Type Antibody Screen Crossmatch 01/21/17 01/21/17 01/21/17 14:05 19:35 22:00 WBC RBC Hgb Hct MCV MCH MCHC RDW Plt Count MPV Neut % (Auto) Lymph % (Auto) [place] % (Auto) Eos % (Auto) Baso % (Auto) Absolute Neuts (auto) Absolute Lymphs (auto) Absolute Monos (auto) Absolute Eos (auto) Absolute Basos (auto) Absolute Nucleated RBC Nucleated RBC % APTT 53.3 H Sodium 139 Potassium 3.3 L Chloride 108 Carbon Dioxide 26 Anion Gap 5 BUN 18 Creatinine 0.87 Est GFR ( Amer) 107.8 Est GFR (Non-Af Amer) 83.8 BUN/Creatinine Ratio 20.7 H Glucose 122 H Calcium 7.5 L Blood Type A Positive Antibody Screen Negative Crossmatch See Detail 01/22/17 01/22/17 01/22/17 00:15 05:30 05:30 WBC 8.5 RBC 2.98 L Hgb 9.1 L Hct 27 L MCV 90 MCH 31 MCHC 34 RDW 14 Plt Count 89 L MPV 8 Neut % (Auto) Lymph % (Auto) [place] % (Auto) Eos % (Auto) Baso % (Auto) Absolute Neuts (auto) Absolute Lymphs (auto) Absolute Monos (auto) Absolute Eos (auto) Absolute Basos (auto) Absolute Nucleated RBC Nucleated RBC % APTT 56.5 H Sodium 139 Potassium 3.6 Chloride 109 Carbon Dioxide 25 Anion Gap 5 BUN 15 Creatinine 0.84 Est GFR ( Amer) 112.2 Est GFR (Non-Af Amer) 87.3 BUN/Creatinine Ratio 17.9 Glucose 104 H Calcium 7.6 L Blood Type Antibody Screen Crossmatch 01/22/17 05:30 WBC 8.1 RBC 3.12 L Hgb 9.5 L Hct 28 L MCV 90 MCH 30 MCHC 34 RDW 14 Plt Count 93 L MPV 8 Neut % (Auto) 67.6 Lymph % (Auto) 15.5 L [place] % (Auto) 9.8 H Eos % (Auto) 6.6 H Baso % (Auto) 0.5 Absolute Neuts (auto) 5.5 Absolute Lymphs (auto) 1.3 Absolute Monos (auto) 0.8 Absolute Eos (auto) 0.5 Absolute Basos (auto) 0 Absolute Nucleated RBC 0 Nucleated RBC % 0 APTT Sodium Potassium Chloride Carbon Dioxide Anion Gap BUN Creatinine Est GFR ( Amer) Est GFR (Non-Af Amer) BUN/Creatinine Ratio Glucose Calcium Blood Type Antibody Screen Crossmatch Imaging: CXR 01/19 - ?small infiltrate/atlectasis left lower lobe ECHO 01/19 - reviewed - RV dilated, hypokinetic, apex moving; no effusion, LV mild LV, D shaped septum V/Q 01/19 - high prob of PE cxr 01/21 - ett above shwetha, no infiltrate noted EKG 01/20 am - RBBB pattern improved, ST dep improved, 1st deg AVB Assessment: 81y M pmhx Depression, HTN, HLD, CAD s/p PCI 20+ yrs back, h/o PE 20 + yrs back ? (family unclear); who came to ER for syncopal episode, dizziness, weakness for days. He was found to be in acute kidney injury, mild lactic acid elevation. He was admitted with diagnosis of possible volume depletion. BP initially were in the 80s, sats low 90s, afebrile. He was on the medical floor and after 3 liters of IVF, BP was in the upper 80s-low 90s. He was being gotten up for weights and vitals when he syncopised and had agonal breathing, intubated by anesthesia. He had a brief loss of pulse, but they said Tele monitoring showed a cardiac rhythm, CPR and epi x1 was given with ROSC. On pressors in ICU, initially hypoxic. -Massive Pulmonary Embolism -Cardiogenic Shock 2/2 to acute RV systolic dysfunction 2/2 to pressure overload /PE - improved -TANGELA, 2/2 to hypotension + pre-renal azotemia from volume depletion - improved -Acute Hypoxic Respiratory Failure - improved -acute blood loss anemia -hematuria. Plan: Neuro- alert, awake. CVS- off pressors, good MAPs, warm ext. replete K. cont NS 75cc/hour, will d/c tomorrow. tolerating po intake. awaiting read of TTE repeat. no arrhythmias noted. With RV dysfunction, has increased morbidity in group home. will monitor for now. heparin will be held for ongoing hematuria. s/p 2 units prbc for drop in hg. d/c arterial line today. Resp- NC, no distress. Heparin infusion, therapeutic ptt; but will hold for hematuria for the afternoon. discussed with patient. ID- less febrile. feel reactive from dvt. wbc negative. re-eval after 24 hours. GI- tolerating po intake. no diarrhea. Renal- TANGELA, improved, cont NS 75cc/hour, off pressors. hematuria ongoing, will hold heparin, advance gage, clamp gage, CT A/P without contrast. Discussed with urology, consult placed. Heme- hg down to 7.4 likely source is urine. s/p 2 prbc, hg 9.1 then 9.5. holding. repeat in AM. holding heparin today for 6 hours, eval urine and likely restart. plt >100k, monitoring. will cont asa for CAD once hematuria improved. Endo- monitor FS Musculsk- pressure ulcer prophylaxis. oob to chair. Wounds- none Nutrition- PO diet DVT prophylaxis: heparin iv GI prophylaxis:- Central Line: right fem 01/19 Arterial Line: right fem 01/19 Gage Cathetor: yes Disposition: ICU for ongoing hematuria 2/2 to AC for PE. monitor for 24 hours, will transfer to tele in 24 hours if stable. Code Status: FULL CODE Total Critical Care time is 35 minutes, excluding procedures/teaching Yves Jack MD [employer] Chief (Electronically Signed)
--- NOTE | 2017-01-22 11:31 | RAD ---
INDICATION: Hematuria, acute kidney injury. COMPARISON: Comparison is made with a prior CT of the abdomen and pelvis from December 24, 2009. TECHNIQUE: A CT scan of the abdomen and pelvis was performed without intravenous or oral contrast. Contiguous axial sections were obtained from the lung bases through the symphysis pubis. Images were reconstructed in the coronal and sagittal planes. FINDINGS: Images through the lung bases demonstrate small bilateral pleural effusions and dependent bilateral lower lobe infiltrates suggestive of atelectasis. The liver and spleen are within normal limits in size without significant focal abnormality on this noncontrast study. No calcified gallstones are seen. The pancreas appears to be within normal limits in size. The adrenal glands and kidneys are normal in size. No renal calculi or hydronephrosis is seen. There is a catheter within the urinary bladder which is decompressed. The aorta is tortuous and ectatic with mild to moderate calcific plaque. There is a central venous catheter entering from the right femoral approach. The catheter tip is located within the right common iliac vein. There is also a central arterial catheter located within the right common femoral artery. No significant enlarged retroperitoneal lymph nodes are seen. The stomach and small bowel appear nondistended. There is moderate distention of the ascending and transverse colon up to the level of an anastomotic suture present at the splenic flexure. No wall thickening is seen. Air is seen in the distal colon. This appears similar to the prior exam.There is no evidence for diverticulitis or colitis. The appendix is not well visualized. There is a small right inguinal hernia containing fat which is unchanged. No free intraperitoneal air or fluid is seen. The patient is status post total left hip replacement surgery. 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 No significant focal osseous abnormality is seen. IMPRESSION: 1. SMALL BILATERAL PLEURAL EFFUSIONS AND BILATERAL LOWER LOBE INFILTRATES SUGGESTIVE OF ATELECTASIS. 2. NO EVIDENCE FOR RENAL CALCULI OR HYDRONEPHROSIS. 3. THERE IS A TRANSITION IN THE COLON AT THE LEVEL OF AN ANASTOMOTIC SUTURE AT THE SPLENIC FLEXURE WITH THE PROXIMAL COLON DISTENDED. THIS APPEARS SIMILAR TO THE PRIOR STUDY FAVORING A CHRONIC INCIDENTAL FINDING. IF THE PATIENT HAS SYMPTOMS OF A BOWEL OBSTRUCTION THAN RECOMMEND A FOLLOW-UP ABDOMINAL SERIES.
[2017-01-22] MEDS: Senna TAB PO SCH (21:37)
[2017-01-23 06:17] LABS: Hematocrit 26 % (42-52); Mean Corpuscular HGB Conc 34 g/dl (31-36); Mean Corpuscular Hemoglobin 31 pg (27-31); Mean Corpuscular Volume 90 fL (80-94); Mean Platelet Volume 8 um3 (7.4-10.4); Red Blood Count 2.91 10^6/ul (4.0-5.4); Red Cell Distribution Width 14 % (10.5-15)
[2017-01-23 06:42] LABS: BUN/Creatinine Ratio 14.5 (8-20); Calcium 7.6 mg/dL (8.6-10.3); Potassium 3.1 mmol/L (3.5-5.0)
[2017-01-23] MEDS: Omeprazole CAP* 20 MG PO SCH (08:56)
[2017-01-23] MEDS: Docusate CAP* 100 MG PO SCH ×3 (08:56→22:06)
[2017-01-23] MEDS: Potassium Chlor TAB* 20 MEQ TAB.ER PO SCH ×2 (08:56→22:08)
[2017-01-23] MEDS: Tamsulosin CAP* 0.4 MG PO SCH (08:56)
[2017-01-23] MEDS: Atorvastatin* 10 MG TAB PO SCH (08:56)
--- NOTE | 2017-01-23 09:32 | PN ---
Progress Note - Progress Note Date of Service: 01/23/17 Note: Progress Note Critical Care 24 hour events: -in bed, on nc, no distress -BP stable, on IVF, tolerating po intake -no cp/sob/n/v -heparin was stopped yesterday for ~9 hours, restarted at 6pm; since then far less hematuria, mild clots still coming out but more yellow urine. likely still some blood present. -urology called for consult Tele: nsr Vitals: Vital Signs Temp 99.7 F 01/23/17 08:00 Pulse 81 01/23/17 08:00 Resp 18 01/23/17 08:00 BP 118/97 01/23/17 08:00 Pulse Ox 95 01/23/17 08:00 Intake & Output 01/22/17 01/23/17 01/23/17 18:59 06:59 18:59 Intake Total 1431 1646 Output Total 400 875 Balance 1031 771 Weight 186 lb 15.232 oz Intake: IV Fluids 734 861 NS 734 861 IVPB 133 NS 133 Medicated IV 47 282 Heparin 47 282 Oral 650 370 Output: Santacruz 400 875 Other: # Bowel Movements 1 Estimated Stool Amount Medium O2/Vent: NC 3L, sat 95%, rr18 Infusions: NS 75cc/hr; heparin infusion Current Medications: Acetaminophen (Tylenol Tab*) 650 mg PO Q4H PRN PRN Reason: FEVER/PAIN Atorvastatin Calcium (Lipitor*) 5 mg PO DAILY [facility] Last Admin: 01/23/17 08:56 Dose: 5 mg Docusate Sodium (Colace Cap*) 100 mg PO BID [facility] Last Admin: 01/23/17 08:56 Dose: 100 mg Heparin Sodium (Porcine) (Heparin Vial(*)) 0 units IV .PER PROTOCOL [facility] Heparin Sodium/Dextrose (Heparin Drip 25,000 Units(*)) 25,000 units in 500 mls @ 17.418 mls/hr IV .POST THROMBO MICHAEL; 12 UNIT/KG/HR PRN Reason: Protocol Last Admin: 01/22/17 06:26 Dose: 19.4 mls/hr Piperacillin Sod/Tazobactam (Sod 3.375 gm/ Sodium Chloride) 100 mls @ 25 mls/ hr IVPB Q8H [facility] Last Admin: 01/23/17 08:55 Dose: 25 mls/hr Sodium Chloride (Ns 0.9% 1000 Ml*) 1,000 mls @ 40 mls/hr IV .per rate [facility] Omeprazole (Prilosec Cap*) 20 mg PO 0730 [facility] Last Admin: 01/23/17 08:56 Dose: 20 mg Potassium Chloride (Klor Con Er Tab*) 40 meq PO BID [facility] Stop: 01/23/17 21:01 Last Admin: 01/23/17 08:56 Dose: 40 meq Senna (Senokot Tab*) 2 tab PO BEDTIME [facility] Last Admin: 01/22/17 21:37 Dose: Not Given Solifenacin (Vesicare(Nf)) 5 mg PO BID [facility] Last Admin: 01/22/17 21:38 Dose: Not Given Tamsulosin HCl (Flomax Cap*) 0.4 mg PO DAILY [facility] Last Admin: 01/23/17 08:56 Dose: 0.4 mg Trazodone HCl (Desyrel Tab*) 50 mg PO BEDTIME PRN PRN Reason: SLEEP Physical Exam: General: awake, alert, oriented, no distress, follows commands Head: normocephalic, atraumatic HEENT: no pallor, no icterus, moist mucous membranes Neck: soft, supple, no jvd, no stridor CVS: normal rate, normal rhythm, no murmur Resp: bilateral air entry, no rhales, no wheeze, no rhonchi, no acc muscle use Abdomen: soft, nontender, nondistended, bowel sounds present Ext: pulses+, warm, no edema Skin: intact, no breakdown, no dryness Neuro: awake, alert, follows commands, moves all ext Labs: Laboratory Results - last 24 hr 01/22/17 01/23/17 01/23/17 17:16 02:05 05:45 WBC RBC Hgb Hct MCV MCH MCHC RDW Plt Count MPV Neut % (Auto) Lymph % (Auto) [place] % (Auto) Eos % (Auto) Baso % (Auto) Absolute Neuts (auto) Absolute Lymphs (auto) Absolute Monos (auto) Absolute Eos (auto) Absolute Basos (auto) Absolute Nucleated RBC Nucleated RBC % APTT 18.6 L 119.0 H* 48.1 H Sodium Potassium Chloride Carbon Dioxide Anion Gap BUN Creatinine Est GFR ( Amer) Est GFR (Non-Af Amer) BUN/Creatinine Ratio Glucose Calcium 01/23/17 01/23/17 05:45 05:45 WBC 8.0 RBC 2.91 L Hgb 9.0 L Hct 26 L MCV 90 MCH 31 MCHC 34 RDW 14 Plt Count 116 L MPV 8 Neut % (Auto) 72.4 Lymph % (Auto) 12.6 L [place] % (Auto) 9.3 H Eos % (Auto) 5.5 Baso % (Auto) 0.2 Absolute Neuts (auto) 5.8 Absolute Lymphs (auto) 1.0 Absolute Monos (auto) 0.7 Absolute Eos (auto) 0.4 Absolute Basos (auto) 0 Absolute Nucleated RBC 0.01 Nucleated RBC % 0.1 APTT Sodium 139 Potassium 3.1 L Chloride 107 Carbon Dioxide 26 Anion Gap 6 BUN 11 Creatinine 0.76 Est GFR ( Amer) 126.0 Est GFR (Non-Af Amer) 98.0 BUN/Creatinine Ratio 14.5 Glucose 120 H Calcium 7.6 L Imaging: CXR 01/19 - ?small infiltrate/atlectasis left lower lobe ECHO 01/19 - reviewed - RV dilated, hypokinetic, apex moving; no effusion, LV mild LV, D shaped septum V/Q 01/19 - high prob of PE cxr 01/21 - ett above shwetha, no infiltrate noted echo 01/21 repeat - improved RV size and function, mild systolic dysfunction of RV noted only now EKG 01/20 am - RBBB pattern improved, ST dep improved, 1st deg AVB Assessment: 81y M pmhx Depression, HTN, HLD, CAD s/p PCI 20+ yrs back, h/o PE 20 + yrs back ? (family unclear); who came to ER for syncopal episode, dizziness, weakness for days. He was found to be in acute kidney injury, mild lactic acid elevation. He was admitted with diagnosis of possible volume depletion. BP initially were in the 80s, sats low 90s, afebrile. He was on the medical floor and after 3 liters of IVF, BP was in the upper 80s-low 90s. He was being gotten up for weights and vitals when he syncopised and had agonal breathing, intubated by anesthesia. He had a brief loss of pulse, but they said Tele monitoring showed a cardiac rhythm, CPR and epi x1 was given with ROSC. On pressors in ICU, initially hypoxic. -Acute Massive Pulmonary Embolism -Cardiogenic Shock 2/2 to acute RV systolic dysfunction 2/2 to pressure overload /PE - improved -TANGELA, 2/2 to hypotension + pre-renal azotemia from volume depletion - improved -Acute Hypoxic Respiratory Failure - improved -acute blood loss anemia -hematuria. Plan: Neuro- alert, awake. CVS- warm ext, perfusing well, making urine, positive balance, on NS infusion 75 -> dec to 40. advance diet. ECHo reviewed, improved size and function. Cont heparin infusion for PE/DVT. Resp- NC, no distress, cont to wean down fio2. Heparin infusion, titrating to therapeutic ptt; monitor for increased bleeding from urinary tract. Left Prox DVT, no indication for IVC filter at this time as long as he can tolerating heparin/AC ID- low grad 99.5 temps, wbc normal. no source of fever, may be reactive from thrombus/dvt or even cystitis/hematuria. will d/c zosyn after today and monitor off abx. GI- tolerating po intake. no diarrhea. Renal- TANGELA, improved, cont NS 40cc/hour, can d/c tomorrow if tolerating good diet. hematuria improved, minimal clots noted now, Urology (dr blanchard) called for consult, possible cystoscopy. CT abd/pelvis w/o contrast - no renal masses observed. Heme- hg 9.0 from 9.5, cont to monitor. cont heparin, titrate to therapeutic PTT , keep 50-60. once hematuria improved/resolved, can transition to PO AC. Discussed with family about hypercoag and malignancy w/u outpatient from primary care. Noted Left prox DVT+. plt >100k, monitoring. restart asa 81 daily. Endo- monitor FS Musculsk- pressure ulcer prophylaxis. oob to chair, ambulate as tolerated. Wounds- none Nutrition- low na diet DVT prophylaxis: heparin iv GI prophylaxis:- Central Line: right fem 01/19 - d/c 01/22 Arterial Line: right fem 01/19 - d/c 01/22 Santacruz Cathetor: yes Disposition: ICU for ongoing hematuria 2/2 to AC for PE. transfer to medical floor, signed out to hospitalist service. Code Status: FULL CODE Yves Jack MD [employer] (Electronically Signed)
[2017-01-23] MEDS: CMC: Solifenacin(NF) 5 MG TAB PO SCH ×2 (09:41→22:15)
[2017-01-23 09:47] LABS: Magnesium 1.6 mg/dL (1.9-2.7)
--- NOTE | 2017-01-23 12:38 | CONS ---
CC: Ann Mccall MD CONSULTATION: DATE OF CONSULT: 01/23/17 The patient is in the ICU. HISTORY OF PRESENT ILLNESS: I was asked by Dr. Jack, ICU physician to see this 81- year-old white male because of gross hematuria. Mr. Valdez was admitted to the ICU because of pulmonary embolism. He required resuscitation. He ultimately did fine. On admission, he had placement of a Santacruz catheter for urine output monitoring. He has been on intravenous heparin for anticoagulation. He was noted to have gross hematuria with a few small clots. The hematuria seem to have gotten worse and made the patient anemic requiring transfusion. The gross hematuria was asymptomatic not associated with flank or abdominal pain and no symptoms of urinary tract infection. He had renal ultrasound on admission, which was normal showing no hydronephrosis or renal masses. consultation is being obtained because of the persistent gross hematuria. I had seen Mr. Valdez in my office last year because of persistent microscopic hematuria and because of urgency and frequency. He was worked up one year ago and had renal ultrasound, which was normal. He also had a cystoscopy, which was negative showing no suspicious bladder lesions. The patient had uninhibited bladder contractions causing incontinence during the procedure. His urine cytologies were negative. The microhematuria was considered to be benign. He was placed on tamsulosin 0.4 mg daily for the bladder outlet obstruction, and on VESIcare 5 mg twice a day to control his frequency and his urge incontinence. He did very well. I last evaluated him in my office 2 weeks ago. He had a normal renal ultrasound. His urinalysis showed +3 blood, and post void bladder ultrasound shows complete bladder emptying. His urine cytology was again negative. Because of the persistent gross hematuria during this admission, Dr. Jack stopped the heparin for several hours. The patient's Santacruz catheter was repositioned. To rule out any renal urethral pathology. The patient had a noncontrast CT of the abdomen and pelvis. The patient had recent decrease renal function, so he was not a candidate for IV contrast study. The CT looked normal without any masses, hydronephrosis, or calculi. The urine has cleared up and heparin was restarted today. On evaluation today, his urine is clear. He has no flank or abdominal tenderness. The patient is doing better and will be transferred from the ICU to the regular floor. If he does not need any more monitoring of his urine output, the Santacruz catheter can be discontinued. If the gross hematuria recurs, he will need a cystoscopy to rule out any bladder lesions. [id number] #: [id number] MTDD
[2017-01-23] MEDS: Magnesium Oxide TAB* 400 MG PO SCH (15:33)
[2017-01-23] MEDS: metroNIDAZOLE TAB* 250 MG PO SCH ×2 (17:35→22:08)
[2017-01-23] MEDS: Heparin VIAL(*) 5000 UNITS/ML VIAL (FIVE THOUSAND) IV SCH (18:12)
[2017-01-23] MEDS: Heparin DRIP 25,000 UNITS(*) 25,000 UNITS/500 ML BAG IV SCH ×2 (18:13→20:09)
[2017-01-23] MEDS: Senna TAB PO SCH (22:07)
[2017-01-23] MEDS: NS 0.9% 1000 ML* 1,000 ML IV SCH (23:48)
[2017-01-24] MEDS: Heparin VIAL(*) 5000 UNITS/ML VIAL (FIVE THOUSAND) IV SCH (02:45)
[2017-01-24] MEDS: Omeprazole CAP* 20 MG PO SCH (08:58)
[2017-01-24] MEDS: Magnesium Oxide TAB* 400 MG PO SCH (08:58)
[2017-01-24] MEDS: metroNIDAZOLE TAB* 250 MG PO SCH (08:58)
[2017-01-24] MEDS: Tamsulosin CAP* 0.4 MG PO SCH (08:58)
[2017-01-24] MEDS: CMC: Solifenacin(NF) 5 MG TAB PO SCH ×2 (08:58→20:48)
[2017-01-24] MEDS: Atorvastatin* 10 MG TAB PO SCH (08:59)
[2017-01-24] MEDS: Docusate CAP* 100 MG PO SCH ×2 (08:59→20:35)
[2017-01-24] MEDS: Aspirin EC Low Dose* 81 MG TAB.EC PO SCH (08:59)
[2017-01-24 09:32] LABS: Hematocrit 29 % (42-52); Hemoglobin 9.7 g/dl (14.0-18.0); Mean Corpuscular HGB Conc 34 g/dl (31-36); Mean Corpuscular Hemoglobin 32 pg (27-31); Mean Corpuscular Volume 93 fL (80-94); Mean Platelet Volume 8 um3 (7.4-10.4); Red Blood Count 3.08 10^6/ul (4.0-5.4); Red Cell Distribution Width 14 % (10.5-15)
[2017-01-24 09:53] LABS: Calcium 7.8 mg/dL (8.6-10.3); EGFR African American 124.1 (>60); EGFR Non-African American 96.5 (>60); Potassium 3.6 mmol/L (3.5-5.0)
--- NOTE | 2017-01-24 13:35 | PN ---
Subjective Date of Service: 01/24/17 Interval History: Seen with daughter at bedside Pt reports diarrhea yesterday that has improved Some nausea but resolved, now eating lunch Denies pain, no chest discomfort, SOB, LH, palps No additional hematuria since heparin restarted Objective Active Medications: Acetaminophen (Tylenol Tab*) 650 mg PO Q4H PRN PRN Reason: FEVER/PAIN Aspirin (Aspirin Ec Low Dose*) 81 mg PO DAILY [facility] Last Admin: 01/24/17 08:59 Dose: 81 mg Atorvastatin Calcium (Lipitor*) 5 mg PO DAILY [facility] Last Admin: 01/24/17 08:59 Dose: 5 mg Docusate Sodium (Colace Cap*) 100 mg PO BID [facility] Last Admin: 01/24/17 08:59 Dose: Not Given Heparin Sodium (Porcine) (Heparin Vial(*)) 0 units IV .PER PROTOCOL [facility] Last Admin: 01/24/17 02:45 Dose: 3,000 units Heparin Sodium/Dextrose (Heparin Drip 25,000 Units(*)) 25,000 units in 500 mls @ 17.418 mls/hr IV .POST THROMBO MICHAEL; 12 UNIT/KG/HR PRN Reason: Protocol Last Admin: 01/23/17 20:09 Dose: 17.418 mls/hr Piperacillin Sod/Tazobactam (Sod 3.375 gm/ Sodium Chloride) 100 mls @ 25 mls/ hr IVPB Q8H [facility] Last Admin: 01/24/17 08:58 Dose: 25 mls/hr Sodium Chloride (Ns 0.9% 1000 Ml*) 1,000 mls @ 40 mls/hr IV .per rate [facility] Last Admin: 01/23/17 23:48 Dose: 40 mls/hr Metronidazole (Flagyl Tab*) 500 mg PO TID [facility] Last Admin: 01/24/17 08:58 Dose: 500 mg Omeprazole (Prilosec Cap*) 20 mg PO 0730 [facility] Last Admin: 01/24/17 08:58 Dose: 20 mg Senna (Senokot Tab*) 2 tab PO BEDTIME [facility] Last Admin: 01/23/17 22:07 Dose: Not Given Solifenacin (Vesicare(Nf)) 5 mg PO BID [facility] Last Admin: 01/24/17 08:58 Dose: 5 mg Tamsulosin HCl (Flomax Cap*) 0.4 mg PO DAILY [facility] Last Admin: 01/24/17 08:58 Dose: 0.4 mg Trazodone HCl (Desyrel Tab*) 50 mg PO BEDTIME PRN PRN Reason: SLEEP Warfarin Sodium (Coumadin Tab(*)) 5 mg PO DAILY@1700 [facility] PRN Reason: Protocol Vital Signs 01/23/17 01/23/17 01/23/17 15:44 22:10 23:50 Temperature 97.6 F Pulse Rate 82 77 Respiratory 18 18 16 Rate Blood Pressure 102/57 96/53 (mmHg) O2 Sat by Pulse 96 98 Oximetry 01/24/17 01/24/17 01/24/17 02:58 07:25 11:25 Temperature 97.6 F 97.6 F 97.7 F Pulse Rate 78 78 82 Respiratory 18 16 16 Rate Blood Pressure 91/45 92/57 103/60 (mmHg) O2 Sat by Pulse 96 96 97 Oximetry Oxygen Devices in Use Now: Nasal Cannula - 2L Appearance: sitting up in chair, NAD Eyes: No Scleral Icterus, PERRLA Ears/Nose/Mouth/Throat: Clear Oropharnyx, Mucous Membranes Moist Neck: NL Appearance and Movements; NL JVP, Trachea Midline Respiratory: Symmetrical Chest Expansion and Respiratory Effort, Clear to Auscultation Cardiovascular: RRR Abdominal: NL Sounds; No Tenderness; No Distention, No Hepatosplenomegaly Lymphatic: No Cervical Adenopathy Extremities: - - 1-2+ LE edema b/l Neurological: Alert and Oriented x 3 Result Diagrams: 01/24/17 09:20 01/24/17 09:20 Additional Lab and Data: Lab Results 01/19/17 01/19/17 01/19/17 Range/Units 08:10 08:10 08:10 WBC 11.3 H (3.5-10.8) 10^3/ul RBC 3.92 L (4.0-5.4) 10^6/ul Hgb 11.9 L (14.0-18.0) g/dl Hct 36 L (42-52) % MCV 91 (80-94) fL MCH 30 (27-31) pg MCHC 33 (31-36) g/dl RDW 14 (10.5-15) % Plt Count 118 L (150-450) 10^3/ul MPV 8 (7.4-10.4) um3 Neut % (Auto) 83.4 H (38-83) % Lymph % (Auto) 5.4 L (25-47) % [place] % (Auto) 9.7 H (1-9) % Eos % (Auto) 1.1 (0-6) % Baso % (Auto) 0.4 (0-2) % Absolute Neuts (auto) 9.4 H (1.5-7.7) 10^3/ul Absolute Lymphs (auto) 0.6 L (1.0-4.8) 10^3/ul Absolute Monos (auto) 1.1 H (0-0.8) 10^3/ul Absolute Eos (auto) 0.1 (0-0.6) 10^3/ul Absolute Basos (auto) 0 (0-0.2) 10^3/ul Absolute Nucleated RBC 0 10^3/ul Nucleated RBC % 0 INR (Anticoag Therapy) (0.89-1.11) Sodium 135 (133-145) mmol/L Potassium 3.4 L (3.5-5.0) mmol/L Chloride 100 L (101-111) mmol/L Carbon Dioxide 25 (22-32) mmol/L Anion Gap 10 (2-11) mmol/L BUN 38 H (6-24) mg/dL Creatinine 2.81 H (0.67-1.17) mg/dL Est GFR ( Amer) 27.9 (>60) Est GFR (Non-Af Amer) 21.7 (>60) BUN/Creatinine Ratio 13.5 (8-20) Glucose 142 H (70-100) mg/dL Lactic Acid 2.4 H* (0.5-2.0) mmol/L Calcium 8.9 (8.6-10.3) mg/dL Magnesium 2.1 (1.9-2.7) mg/dL Total Bilirubin 0.90 (0.2-1.0) mg/dL AST 14 (13-39) U/L ALT 9 (7-52) U/L Alkaline Phosphatase 57 (34-104) U/L Total Creatine Kinase 129 (10-223) U/L Troponin I 0.22 H* (<0.04) ng/mL Total Protein 6.6 (6.4-8.9) g/dL Albumin 3.1 L (3.2-5.2) g/dL Globulin 3.5 (2-4) g/dL Albumin/Globulin Ratio 0.9 L (1-3) TSH 4.23 (0.34-5.60) mcIU/mL 01/19/17 Range/Units 08:10 WBC (3.5-10.8) 10^3/ul RBC (4.0-5.4) 10^6/ul Hgb (14.0-18.0) g/dl Hct (42-52) % MCV (80-94) fL MCH (27-31) pg MCHC (31-36) g/dl RDW (10.5-15) % Plt Count (150-450) 10^3/ul MPV (7.4-10.4) um3 Neut % (Auto) (38-83) % Lymph % (Auto) (25-47) % [place] % (Auto) (1-9) % Eos % (Auto) (0-6) % Baso % (Auto) (0-2) % Absolute Neuts (auto) (1.5-7.7) 10^3/ul Absolute Lymphs (auto) (1.0-4.8) 10^3/ul Absolute Monos (auto) (0-0.8) 10^3/ul Absolute Eos (auto) (0-0.6) 10^3/ul Absolute Basos (auto) (0-0.2) 10^3/ul Absolute Nucleated RBC 10^3/ul Nucleated RBC % INR (Anticoag Therapy) 1.09 (0.89-1.11) Sodium (133-145) mmol/L Potassium (3.5-5.0) mmol/L Chloride (101-111) mmol/L Carbon Dioxide (22-32) mmol/L Anion Gap (2-11) mmol/L BUN (6-24) mg/dL Creatinine (0.67-1.17) mg/dL Est GFR ( Amer) (>60) Est GFR (Non-Af Amer) (>60) BUN/Creatinine Ratio (8-20) Glucose (70-100) mg/dL Lactic Acid (0.5-2.0) mmol/L Calcium (8.6-10.3) mg/dL Magnesium (1.9-2.7) mg/dL Total Bilirubin (0.2-1.0) mg/dL AST (13-39) U/L ALT (7-52) U/L Alkaline Phosphatase (34-104) U/L Total Creatine Kinase (10-223) U/L Troponin I (<0.04) ng/mL Total Protein (6.4-8.9) g/dL Albumin (3.2-5.2) g/dL Globulin (2-4) g/dL Albumin/Globulin Ratio (1-3) TSH (0.34-5.60) mcIU/mL Microbiology and Other Data: Microbiology 01/24/17 00:05 Stool Gross Appearance - Final Stool C. difficile DNA Amplification - Final 027 Presumptive NEGATIVE Toxigenic C.diff NEGATIVE Assess/Plan/Problems-Billing Assessment: 81 yo M h/o severe depression, CAD, HTN, HLD p/w weakness with hospital stay c/ b cardiac arrest with PEA s/p ROSC in setting of large pulmonary embolism - Patient Problems (1) Acute massive pulmonary embolism Comment: Heparin to couamdin bridge Can consider lovenox tomorrow if no additional hematuria on heparin (2) Acute kidney injury Comment: In setting of PE and cardiogenic shock now resolved (3) Cardiogenic shock Comment: In setting of PE resolved (4) DVT, lower extremity, proximal, acute Comment: heparin to coumadin (5) Hematuria Comment: resolved. Heparin to coumadin. If no additional bleeding will d/c gage tomorrow. If additional bleeding will need cystoscopy. Appreciate urology consultation (6) Right ventricular systolic dysfunction Comment: In setting of PE (7) Depression Comment: ECT as outpatient with Dr. Brenda Whiteside in [place] [phone] (8) Fever Comment: zosyn and flagyl stopped 01/24 (9) DVT prophylaxis Comment: heparin gtt
[2017-01-24] MEDS: Warfarin TAB(*) 5 MG PO SCH (17:56)
[2017-01-24] MEDS: Senna TAB PO SCH (20:36)
[2017-01-25] MEDS: Heparin DRIP 25,000 UNITS(*) 25,000 UNITS/500 ML BAG IV SCH (02:01)
[2017-01-25 05:03] LABS: Hematocrit 24 % (42-52); Hemoglobin 8.1 g/dl (14.0-18.0); Mean Corpuscular HGB Conc 34 g/dl (31-36); Mean Corpuscular Hemoglobin 31 pg (27-31); Mean Corpuscular Volume 93 fL (80-94); Mean Platelet Volume 8 um3 (7.4-10.4); Red Blood Count 2.58 10^6/ul (4.0-5.4); Red Cell Distribution Width 14 % (10.5-15); White Blood Count 8.2 10^3/ul (3.5-10.8)
[2017-01-25 05:11] LABS: Add Diff/Slide Review? Slide Review Added; Comments Flag Yes
[2017-01-25 05:12] LABS: BUN/Creatinine Ratio 13.3 (8-20); Calcium 7.5 mg/dL (8.6-10.3); EGFR African American 127.9 (>60); EGFR Non-African American 99.5 (>60); Potassium 3.1 mmol/L (3.5-5.0)
[2017-01-25] MEDS: NS 0.9% 1000 ML* 1,000 ML IV SCH (06:33)
[2017-01-25] MEDS: Tamsulosin CAP* 0.4 MG PO SCH (08:58)
[2017-01-25] MEDS: CMC: Solifenacin(NF) 5 MG TAB PO SCH ×2 (08:58→22:21)
[2017-01-25] MEDS: Atorvastatin* 10 MG TAB PO SCH (08:58)
[2017-01-25] MEDS: Docusate CAP* 100 MG PO SCH ×2 (08:58→22:21)
[2017-01-25] MEDS: Omeprazole CAP* 20 MG PO SCH (08:58)
[2017-01-25] MEDS: Aspirin EC Low Dose* 81 MG TAB.EC PO SCH (08:58)
[2017-01-25 14:19] LABS: Hematocrit 27 % (42-52); Hemoglobin 9.1 g/dl (14.0-18.0); Mean Corpuscular HGB Conc 34 g/dl (31-36); Mean Corpuscular Hemoglobin 31 pg (27-31); Mean Corpuscular Volume 93 fL (80-94); Mean Platelet Volume 7 um3 (7.4-10.4); Red Blood Count 2.92 10^6/ul (4.0-5.4); Red Cell Distribution Width 14 % (10.5-15); White Blood Count 8.4 10^3/ul (3.5-10.8)
[2017-01-25 14:22] LABS: Add Diff/Slide Review? Slide Review Added; Comments Flag Yes
[2017-01-25] MEDS: Warfarin TAB(*) 5 MG PO SCH (16:35)
--- NOTE | 2017-01-25 18:37 | PN ---
Subjective Date of Service: 01/25/17 Interval History: No additional bleeding No complaints denies sob, CP, N/V, LH Objective Active Medications: Acetaminophen (Tylenol Tab*) 650 mg PO Q4H PRN PRN Reason: FEVER/PAIN Aspirin (Aspirin Ec Low Dose*) 81 mg PO DAILY [facility] Last Admin: 01/25/17 08:58 Dose: 81 mg Atorvastatin Calcium (Lipitor*) 5 mg PO DAILY [facility] Last Admin: 01/25/17 08:58 Dose: 5 mg Docusate Sodium (Colace Cap*) 100 mg PO BID [facility] Last Admin: 01/25/17 08:58 Dose: Not Given Heparin Sodium (Porcine) (Heparin Vial(*)) 0 units IV .PER PROTOCOL [facility] Last Admin: 01/24/17 02:45 Dose: 3,000 units Heparin Sodium/Dextrose (Heparin Drip 25,000 Units(*)) 25,000 units in 500 mls @ 17.418 mls/hr IV .POST THROMBO MICHAEL; 12 UNIT/KG/HR PRN Reason: Protocol Last Admin: 01/25/17 02:01 Dose: 19.4 mls/hr Sodium Chloride (Ns 0.9% 1000 Ml*) 1,000 mls @ 40 mls/hr IV .per rate [facility] Last Admin: 01/25/17 06:33 Dose: 40 mls/hr Omeprazole (Prilosec Cap*) 20 mg PO 0730 [facility] Last Admin: 01/25/17 08:58 Dose: 20 mg Senna (Senokot Tab*) 2 tab PO BEDTIME [facility] Last Admin: 01/24/17 20:36 Dose: Not Given Solifenacin (Vesicare(Nf)) 5 mg PO BID [facility] Last Admin: 01/25/17 08:58 Dose: 5 mg Tamsulosin HCl (Flomax Cap*) 0.4 mg PO DAILY [facility] Last Admin: 01/25/17 08:58 Dose: 0.4 mg Trazodone HCl (Desyrel Tab*) 50 mg PO BEDTIME PRN PRN Reason: SLEEP Warfarin Sodium (Coumadin Tab(*)) 5 mg PO DAILY@1700 [facility] PRN Reason: Protocol Last Admin: 01/25/17 16:35 Dose: 5 mg Vital Signs 01/24/17 01/24/17 01/24/17 19:41 20:35 23:30 Temperature 97.2 F 99.1 F Pulse Rate 77 76 Respiratory 17 16 20 Rate Blood Pressure 122/61 125/50 (mmHg) O2 Sat by Pulse 97 96 Oximetry 01/25/17 01/25/17 01/25/17 03:35 07:32 08:00 Temperature 97.3 F 97.9 F Pulse Rate 75 81 Respiratory 20 16 17 Rate Blood Pressure 108/52 110/62 (mmHg) O2 Sat by Pulse 97 96 Oximetry 01/25/17 15:50 Temperature 98.1 F Pulse Rate 81 Respiratory 17 Rate Blood Pressure 131/74 (mmHg) O2 Sat by Pulse 98 Oximetry Oxygen Devices in Use Now: Nasal Cannula - 2L Appearance: sitting in chair, NAD Eyes: No Scleral Icterus, PERRLA Ears/Nose/Mouth/Throat: Mucous Membranes Moist Neck: NL Appearance and Movements; NL JVP, Trachea Midline Respiratory: Symmetrical Chest Expansion and Respiratory Effort, - - decreased BS in the bases Cardiovascular: RRR Abdominal: NL Sounds; No Tenderness; No Distention, No Hepatosplenomegaly Extremities: - - 2+ LE edema Neurological: Alert and Oriented x 3 Result Diagrams: 01/25/17 14:02 01/25/17 04:11 Additional Lab and Data: Lab Results 01/19/17 01/19/17 01/19/17 Range/Units 08:10 08:10 08:10 WBC 11.3 H (3.5-10.8) 10^3/ul RBC 3.92 L (4.0-5.4) 10^6/ul Hgb 11.9 L (14.0-18.0) g/dl Hct 36 L (42-52) % MCV 91 (80-94) fL MCH 30 (27-31) pg MCHC 33 (31-36) g/dl RDW 14 (10.5-15) % Plt Count 118 L (150-450) 10^3/ul MPV 8 (7.4-10.4) um3 Neut % (Auto) 83.4 H (38-83) % Lymph % (Auto) 5.4 L (25-47) % [place] % (Auto) 9.7 H (1-9) % Eos % (Auto) 1.1 (0-6) % Baso % (Auto) 0.4 (0-2) % Absolute Neuts (auto) 9.4 H (1.5-7.7) 10^3/ul Absolute Lymphs (auto) 0.6 L (1.0-4.8) 10^3/ul Absolute Monos (auto) 1.1 H (0-0.8) 10^3/ul Absolute Eos (auto) 0.1 (0-0.6) 10^3/ul Absolute Basos (auto) 0 (0-0.2) 10^3/ul Absolute Nucleated RBC 0 10^3/ul Nucleated RBC % 0 INR (Anticoag Therapy) (0.89-1.11) Sodium 135 (133-145) mmol/L Potassium 3.4 L (3.5-5.0) mmol/L Chloride 100 L (101-111) mmol/L Carbon Dioxide 25 (22-32) mmol/L Anion Gap 10 (2-11) mmol/L BUN 38 H (6-24) mg/dL Creatinine 2.81 H (0.67-1.17) mg/dL Est GFR ( Amer) 27.9 (>60) Est GFR (Non-Af Amer) 21.7 (>60) BUN/Creatinine Ratio 13.5 (8-20) Glucose 142 H (70-100) mg/dL Lactic Acid 2.4 H* (0.5-2.0) mmol/L Calcium 8.9 (8.6-10.3) mg/dL Magnesium 2.1 (1.9-2.7) mg/dL Total Bilirubin 0.90 (0.2-1.0) mg/dL AST 14 (13-39) U/L ALT 9 (7-52) U/L Alkaline Phosphatase 57 (34-104) U/L Total Creatine Kinase 129 (10-223) U/L Troponin I 0.22 H* (<0.04) ng/mL Total Protein 6.6 (6.4-8.9) g/dL Albumin 3.1 L (3.2-5.2) g/dL Globulin 3.5 (2-4) g/dL Albumin/Globulin Ratio 0.9 L (1-3) TSH 4.23 (0.34-5.60) mcIU/mL 01/19/17 Range/Units 08:10 WBC (3.5-10.8) 10^3/ul RBC (4.0-5.4) 10^6/ul Hgb (14.0-18.0) g/dl Hct (42-52) % MCV (80-94) fL MCH (27-31) pg MCHC (31-36) g/dl RDW (10.5-15) % Plt Count (150-450) 10^3/ul MPV (7.4-10.4) um3 Neut % (Auto) (38-83) % Lymph % (Auto) (25-47) % [place] % (Auto) (1-9) % Eos % (Auto) (0-6) % Baso % (Auto) (0-2) % Absolute Neuts (auto) (1.5-7.7) 10^3/ul Absolute Lymphs (auto) (1.0-4.8) 10^3/ul Absolute Monos (auto) (0-0.8) 10^3/ul Absolute Eos (auto) (0-0.6) 10^3/ul Absolute Basos (auto) (0-0.2) 10^3/ul Absolute Nucleated RBC 10^3/ul Nucleated RBC % INR (Anticoag Therapy) 1.09 (0.89-1.11) Sodium (133-145) mmol/L Potassium (3.5-5.0) mmol/L Chloride (101-111) mmol/L Carbon Dioxide (22-32) mmol/L Anion Gap (2-11) mmol/L BUN (6-24) mg/dL Creatinine (0.67-1.17) mg/dL Est GFR ( Amer) (>60) Est GFR (Non-Af Amer) (>60) BUN/Creatinine Ratio (8-20) Glucose (70-100) mg/dL Lactic Acid (0.5-2.0) mmol/L Calcium (8.6-10.3) mg/dL Magnesium (1.9-2.7) mg/dL Total Bilirubin (0.2-1.0) mg/dL AST (13-39) U/L ALT (7-52) U/L Alkaline Phosphatase (34-104) U/L Total Creatine Kinase (10-223) U/L Troponin I (<0.04) ng/mL Total Protein (6.4-8.9) g/dL Albumin (3.2-5.2) g/dL Globulin (2-4) g/dL Albumin/Globulin Ratio (1-3) TSH (0.34-5.60) mcIU/mL Microbiology and Other Data: Microbiology 01/24/17 00:05 Stool Gross Appearance - Final Stool C. difficile DNA Amplification - Final 027 Presumptive NEGATIVE Toxigenic C.diff NEGATIVE Assess/Plan/Problems-Billing Assessment: 81 yo M h/o severe depression, CAD, HTN, HLD p/w weakness with hospital stay c/ b cardiac arrest with PEA s/p ROSC in setting of large pulmonary embolism - Patient Problems (1) Acute massive pulmonary embolism Comment: Heparin to coumdin bridge Did not convert to lovenox with drop in H/H this AM Can consider lovenox tomorrow if stable (2) Acute kidney injury Comment: Acute kidney failure In setting of PE and cardiogenic shock now resolved (3) Cardiogenic shock Comment: In setting of PE resolved (4) DVT, lower extremity, proximal, acute Comment: heparin to coumadin (5) Hematuria Comment: resolved. Heparin to coumadin. If no additional bleeding will d/c gage tomorrow. If additional bleeding will need cystoscopy. Appreciate urology consultation (6) Right ventricular systolic dysfunction Comment: In setting of PE (7) Depression Comment: ECT as outpatient with Dr. Brenda Whiteside in [place] [phone] (8) Fever Comment: zosyn and flagyl stopped 01/24 (9) DVT prophylaxis Comment: heparin gtt
[2017-01-25] MEDS: Senna TAB PO SCH (22:21)
[2017-01-26] MEDS: Heparin DRIP 25,000 UNITS(*) 25,000 UNITS/500 ML BAG IV SCH (03:35)
[2017-01-26 04:55] LABS: Hematocrit 25 % (42-52); Hemoglobin 8.4 g/dl (14.0-18.0); Mean Corpuscular HGB Conc 34 g/dl (31-36); Mean Corpuscular Hemoglobin 32 pg (27-31); Mean Corpuscular Volume 93 fL (80-94); Mean Platelet Volume 7 um3 (7.4-10.4); Red Blood Count 2.64 10^6/ul (4.0-5.4); Red Cell Distribution Width 14 % (10.5-15); White Blood Count 9.1 10^3/ul (3.5-10.8)
[2017-01-26 05:00] LABS: Add Diff/Slide Review? Slide Review Added; Comments Flag Yes
[2017-01-26 05:06] LABS: BUN/Creatinine Ratio 9.6 (8-20); Calcium 7.7 mg/dL (8.6-10.3); EGFR African American 78.1 (>60); EGFR Non-African American 60.7 (>60); Potassium 3.3 mmol/L (3.5-5.0)
[2017-01-26] MEDS: NS 0.9% 1000 ML* 1,000 ML IV SCH (06:20)
[2017-01-26] MEDS ORDERED: Potassium Chlor TAB* 20 MEQ TAB.ER PO ONE (08:19)
[2017-01-26] MEDS: Tamsulosin CAP* 0.4 MG PO SCH (09:57)
[2017-01-26] MEDS: Omeprazole CAP* 20 MG PO SCH (09:57)
[2017-01-26] MEDS: Aspirin EC Low Dose* 81 MG TAB.EC PO SCH (09:57)
[2017-01-26] MEDS: CMC: Solifenacin(NF) 5 MG TAB PO SCH (09:57)
[2017-01-26] MEDS: Docusate CAP* 100 MG PO SCH (09:58)
[2017-01-26] MEDS: Atorvastatin* 10 MG TAB PO SCH (09:58)
[2017-01-26 10:09] VITALS: BP 119/61
[2017-01-26] MEDS ORDERED: Enoxaparin(*) 150 MG/ML 1 ML SYRINGE SUBCUT SCH ×2 (11:00)
--- NOTE | 2017-01-26 13:57 | DS ---
CC: Dr. Mccall * DATE OF ADMISSION: 01/19/2017. DATE OF DISCHARGE: 01/26/2017. PRIMARY CARE PROVIDER: Dr. Mccall. PRIMARY DIAGNOSES: 1. Cardiogenic shock in the setting of massive pulmonary embolism. 2. Hematuria. 3. Acute urinary retention. SECONDARY DIAGNOSES: 1. Acute kidney failure. 2. Lower extremity DVT. 3. Right ventricular systolic dysfunction/cor pulmonale. 4. Depression. 5. History of coronary artery disease. 6. History of colon cancer. 7. History of hypertension. 8. History of hyperlipidemia. 9. Acute kidney failure. MEDICATIONS ON DISCHARGE: 1. Lovastatin 20 mg daily. 2. Aspirin 81 mg daily. 3. Vesicare 5 mg twice daily. 4. Tamsulosin 0.4 mg daily. 5. Trazodone 50 mg at bedtime as needed for insomnia. 6. Vitamin B12 500 mg daily. 7. Coumadin 5 mg daily in the evening. 8. Senna two tabs at bedtime as needed for constipation. 9. Omeprazole 20 mg daily. 10. Lovenox 130 mcg subcutaneously daily until INR is therapeutic, goal 2 to 3. 11. Docusate 100 mg twice daily. 12. Acetaminophen 650 mg every 4 hours as needed for fever or pain. IMAGING STUDIES: 1. VQ scan: Impression: High probability for acute pulmonary embolism. 2. Lower extremity Doppler study: Impression: The right common femoral, great saphenous vein at the saphenous femoral junction, and proximal segment of the profunda femoral vein could not be visualized limiting assessment. Distal to this, the profunda femoral, superficial femoral, and popliteal right lower extremity veins appear patent and demonstrate normal respiratory phasicity consistent with patency of the more proximal nonvisualized right lower extremity veins. Occlusive thrombosis of one of the right posterior tibial veins. Nonocclusive hyperechoic thrombus at the left saphenous femoral junction , superficial femoral vein, and popliteal vein. 3. CT abdomen and pelvis: Impression: Small bilateral pleural effusions and bilateral lower lobe infiltrates suggestive of atelectasis. No evidence for renal calculi or hydronephrosis. There is a transition in the colon at the level of an anastomotic suture at the splenic flexure with the proximal colon distended. This appears similar to the prior study favoring a chronic incidental finding. 4. Echocardiogram: Conclusions: Mild concentric left ventricular hypertrophy. The left ventricle appears hyperdynamic. D-shaped septum consistent with RV overload. The right ventricle is moderately dilated. The right ventricular global systolic function is severely reduced, the very tip of the apex contracts and the very base of the free wall contracts, the rest of the RV is akinetic. 5. Repeat echocardiogram to evaluate for RV dysfunction: Conclusions: Limited echo. Normal right ventricular size with low normal to mildly reduced right ventricular systolic function. Since the prior transthoracic echocardiogram, pertinent change is prior moderately dilated right ventricular size noted with severely reduced right ventricular systolic function. HISTORY OF PRESENT ILLNESS AND HOSPITAL COURSE: This is an 81-year-old man with a past medical history as outlined in the history of present illness on the day of admission who presented to the hospital with lightheadedness and weakness. He was admitted to the hospital. After reaching the floor, he was getting up to use the bathroom, had loss of consciousness and agonal breathing. He was intubated by anesthesia. He had brief loss of pulse, but was said to have telemonitoring with cardiac rhythm. He underwent CPR and epi times one with a return of spontaneous circulation, after which he was transferred to the ICU and started on Levophed. He had an echocardiogram performed that indicated severe RV dysfunction with suspicion for pulmonary embolism. He received TPA for his massive pulmonary embolism and cardiogenic shock without any complication. He was ultimated extubated and titrated off of the Levophed and ultimately transferred to the floor. His hospital course was complicated by an episode of hematuria while on Heparin. It resolved with discontinuation of Heparin for six hours. Heparin was restarted and ultimately the patient began bridging to Coumadin. His INR on the day of discharge was 1.25. He had no additional bleeding events while on Heparin or with his bridge to Coumadin. His Santacruz catheter was removed the day prior to discharge; however, he was retaining overnight and had one straight catheterization. He had two attempts at voiding with postvoid bladder scan indicating 270 cc retained and over 500 cc retained on the last check prior to Santacruz catheter being reinserted. He will be continued on his Finasteride and Tamsulosin and discharged with Santacruz catheter in place. After discharge from the ICU, there were no complications. He has been accepted to [facility] where he will complete transition to Coumadin with Lovenox. He will receive full dose Lovenox for the remainder of the bridge with indication to test INR in two days from now and again in five days from now with the results to be forwarded to his primary care provider as well. AT FOLLOW-UP, PLEASE: 1. Ensure proper titration of Coumadin with goal INR 2 to 3. 2. Follow blood pressures as I am sure you will. The patient has been off his Chlorthalidone as well as Lisinopril and not restarted secondary to normotension during the hospital stay after discharge from the ICU. 3. Consider BMP for monitoring of potassium. The patient did require several oral replacement doses of potassium with a shanti and his potassium of 2.9 on January 21. REASONS TO RETURN TO THE HOSPITAL: Including, but not limited to recurrent or worsening symptoms, shortness of breath, chest pain, nausea, vomiting, lightheadedness, loss of consciousness, near loss of consciousness, inability to obtain or tolerate medications, bleeding from any source were discussed with the patient, he acknowledged understanding. Greater than 60 minutes were spent in the discharge of this patient. [id number]/[facility] #: [id number] MTDD
== END 2017-01-26 14:50 | disposition home or self-care (01) | DRG 208 ==
LOC: ED 07:00 → MEDTELE 09:23 → ICU 13:40 → OBSVTOIN 19:24 → INTOOBSV 19:24 → MED 01-23 11:53
PROVIDERS: ADMIT Internal Medicine; ATTEND Internal Medicine
PROC: 5A12012 Performance of Cardiac Output, Single, Manual (ICD-10-PCS; principal; 2017-01-19)
PROC: 5A1945Z Respiratory Ventilation, 24-96 Consecutive Hours (ICD-10-PCS; 2017-01-19)
PROC: 0BH17EZ Insertion of Endotracheal Airway into Trachea, Via Natural or Artificial Opening (ICD-10-PCS; 2017-01-19)
PROC: 3E03317 Introduction of Other Thrombolytic into Peripheral Vein, Percutaneous Approach (ICD-10-PCS; 2017-01-19)
PROC: 04HK33Z Insertion of Infusion Device into Right Femoral Artery, Percutaneous Approach (ICD-10-PCS; 2017-01-19)
PROC: 06HM33Z Insertion of Infusion Device into Right Femoral Vein, Percutaneous Approach (ICD-10-PCS; 2017-01-19)
PROC: 30233N1 Transfusion of Nonautologous Red Blood Cells into Peripheral Vein, Percutaneous Approach (ICD-10-PCS; 2017-01-21)
DX: I26.99 Other pulmonary embolism without acute cor pulmonale (principal); J96.01 Acute respiratory failure with hypoxia; R57.0 Cardiogenic shock; N17.9 Acute kidney failure, unspecified; I27.81 Cor pulmonale (chronic); I95.9 Hypotension, unspecified; D62 Acute posthemorrhagic anemia; J90 Pleural effusion, not elsewhere classified; I82.4Y1 Acute embolism and thrombosis of unspecified deep veins of right proximal lower extremity; I82.441 Acute embolism and thrombosis of right tibial vein; E86.0 Dehydration; I25.10 Atherosclerotic heart disease of native coronary artery without angina pectoris; E78.00 Pure hypercholesterolemia, unspecified; I10 Essential (primary) hypertension; Z86.711 Personal history of pulmonary embolism; Z88.8 Allergy status to other drugs, medicaments and biological substances; Z85.038 Personal history of other malignant neoplasm of large intestine; M19.90 Unspecified osteoarthritis, unspecified site; F32.9 Major depressive disorder, single episode, unspecified; F41.9 Anxiety disorder, unspecified; R40.2412 Glasgow coma scale score 13-15, at arrival to emergency department; E78.5 Hyperlipidemia, unspecified; R79.89 Other specified abnormal findings of blood chemistry; Z96.642 Presence of left artificial hip joint; Z82.3 Family history of stroke; R53.1 Weakness; E87.6 Hypokalemia; Z95.5 Presence of coronary angioplasty implant and graft; R31.9 Hematuria, unspecified; R19.7 Diarrhea, unspecified; R11.0 Nausea; I51.9 Heart disease, unspecified; R50.9 Fever, unspecified; Z79.82 Long term (current) use of aspirin; Z79.01 Long term (current) use of anticoagulants; T45.515A Adverse effect of anticoagulants, initial encounter
CPT/HCPCS: 36415; 36600; 71010; 74176; 76775; 78580; 80048; 80053; 81003; 81015; 82550; 82570; 82803; 83605; 83735; 83880; 84132; 84300; 84443; 84484; 85025; 85027; 85379; 85610; 85730; 86850; 86900; 86901; 86922; 87086; 87493; 92950; 93005; 93306; 93308; 93970; 94002; 94003; 94150; 94760; 94761; A9270-GY; A9540; J0171; J1644; J1650; J2250; J2543; J2704; J2997; J3010; J3480; P9040

== ENCOUNTER 2019-07-08 17:02 | Inpatient (IN) | payer MEDICARE ==
--- NOTE | 2019-07-08 17:13 | ED ---
GI/ HPI - HPI Summary HPI Summary: 83 year old male w hx afib on coumadin, colon cancer in the past presents to the ED by EMS with a chief complaint of a GI bleed starting yesterday. Per EMS, the patient has had dark brown diarrhea since yesterday. EMS also reports a last O2 of 93, but it dipped into the 70's while en route. Patient denies fatigue, vomiting and fever. He is on coumadin and aspirin. He feels slight abdominal pain. Hx of CHF and colon cancer. No reported fevers. Denies cough. at bedside. Per MOLST form patient is DNR/DNI but would like interventions. - History of Current Complaint Stated Complaint: BLOOD IN STOOL PER EMS Hx Obtained From: Patient, EMS Onset/Duration: Started Days Ago, Still Present Timing: Constant Associated Signs and Symptoms: Positive: Blood w/Stool, Diarrhea, Abdominal Pain. Negative: Vomiting, Fever - Additional Pertinent History Primary Care Physician: MARTIN - Allergy/Home Medications Allergies/Adverse Reactions: Allergies Allergy/AdvReac Type Severity Reaction Status Date / Time Iodinated Contrast Media Allergy Rash Verified 07/08/19 17:35 Home Medications: Home Medications Acetaminophen TAB* [Tylenol TAB*] 650 mg PO Q8H PRN 07/08/19 [History] Apixaban* [Eliquis*] 5 mg PO BID 07/08/19 [History Confirmed 07/08/19] Calmoseptine Ointment TOPICAL BID 07/08/19 [History Confirmed 07/08/19] Carbidopa-Levodopa 25-100 Tab 1 tab PO AC 07/08/19 [History Confirmed 07/08/19] Cyanocobalamin (Vitamin B-12) [Vitamin B-12] 500 mcg PO 07/08/19 [History] Hydrocortisone 2.5% CREAM(NF) 1 applic TOPICAL BID 07/08/19 [History Confirmed 07/08/19] Loperamide HCl [Imodium A-D] 2 mg PO DAILY 07/08/19 [History Confirmed 07/08/19] diphenhydrAMINE HCl [Benadryl Allergy] 25 mg PO BID PRN 07/08/19 [History Confirmed 07/08/19] PMH/Surg Hx/FS Hx/Imm Hx Endocrine/Hematology History: Denies: Hx Diabetes, Hx Thyroid Disease Cardiovascular History: Reports: Hx Coronary Artery Disease - PRN NITROSTAT, Hx Hypercholesterolemia, Hx Hypertension Denies: Hx Pacemaker/ICD Respiratory History: Reports: Hx Pulmonary Embolism Denies: Hx Asthma, Hx Chronic Obstructive Pulmonary Disease (COPD) GI History: Reports: Other GI Disorders - hx of colon cancer Denies: Hx Ulcer History: Denies: Hx Dialysis Musculoskeletal History: Reports: Hx Arthritis Sensory History: Reports: Hx Contacts or Glasses - reading glasses Denies: Hx Hearing Aid Opthamlomology History: Reports: Hx Contacts or Glasses - reading glasses Neurological History: Reports: Hx Transient Ischemic Attacks (TIA) Denies: Hx Dementia, Hx Seizures Psychiatric History: Reports: Hx Anxiety, Hx Depression, Hx Community Mental Health Tx Denies: Hx Eating Disorder, Hx Panic Disorder, Hx of Violent Episodes Against Others - Cancer History Cancer Type, Location and Year: HX OF COLON CA - Surgical History Surgery Procedure, Year, and Place: COLON RESECTION- 2001. Lt HIP REPLACEMENT - 06/07 Infectious Disease History: Denies: Hx Clostridium Difficile, Hx Hepatitis, Hx Human Immunodeficiency Virus (HIV), Hx of Known/Suspected MRSA, Hx Shingles, Hx Tuberculosis - Family History Known Family History: Positive: Other - no mental health FHx - Social History Alcohol Use: None Hx Substance Use: No Substance Use Type: Reports: None Hx Tobacco Use: No Smoking Status (MU): Never Smoked Tobacco Review of Systems Negative: Fever, Fatigue Positive: Abdominal Pain - slight, Diarrhea - dark brown blood in stool. Negative: Vomiting Positive: incontinence - stool All Other Systems Reviewed And Are Negative: Yes Physical Exam - Summary Physical Exam Summary: Constitutional: Elderly, chronically ill appearing Skin: Warm, Dry HENT: Normocephalic; Atraumatic. Soft spoken Eyes: Conjunctiva normal Neck: Musculoskeletal ROM normal neck. (-) JVD, (-) Stridor, (-) Nuchal rigidity Cardio: Rhythm regular, rate normal, Heart sounds normal; Intact distal pulses; Radial pulses are 2+ and symmetric. (-) Murmur Pulmonary/Chest wall: Effort normal. (-) Respiratory distress, (-) Wheezes, (-) Rales Abd: Soft, mild tenderness, (-) Distension, (-) Guarding, (-) Rebound. Old scar. Dark brown loose stool. Musculoskeletal: (-) Edema. Bilateral lower extremity contractures. Lymph: (-) Cervical adenopathy Neuro: Alert, Oriented x3 Psych: Mood and affect Normal Triage Information Reviewed: Yes Vital Signs Reviewed: Yes Procedures - Sedation Patient Received Moderate/Deep Sedation with Procedure: No Diagnostics - Laboratory Result Diagrams: 07/08/19 17:28 07/08/19 17:28 Lab Statement: Any lab studies that have been ordered have been reviewed, and results considered in the medical decision making process. - Radiology CXR Radiology Interpretation Completed By: ED Physician Summary of Radiographic Findings: XR shows no change from prior. Dr. Stevens interpreted and reviewed this report. - CT APCT CT Interpretation Completed By: Radiologist Summary of CT Findings: IMPRESSION: 1. Wall thickening of the sigmoid colon which could represent colitis although. there is no pericolonic stranding. Consider radiographic followup to ensure. clearing and exclude underlying neoplasm. 2. Status post partial colon resection with persistent mild dilatation of the. transverse colon proximal to the left abdominal anastomosis. No evidence of. bowel obstruction. 3. Large amount of stool distending the rectum with mild presacral stranding. raising concern for stercoral colitis. Recommend disimpaction. 4. Left pelvis partially obscured by streak artifact from left hip prosthesis. 5. Small right pleural effusion. 6. Mild urinary wall thickening versus artifact from under distention. Suggest. correlation with UA. 7. Small amount of High-density material layering in the stomach and left. colon, likely ingested material. An ED physician has reviewed this report. - EKG 1934 Cardiac Rate: NL - 80 bpm EKG Rhythm: Sinus Rhythm ST Segment: Normal Ectopy: None Summary of EKG Findings: EKG at 193 shows sinus rhthem at 80 bpm. Significant artifact. No STEMI. An ED physician has reviewed and interpreted this EKG. Re-Evaluation - Re-Evaluation First Eval Re-Evaluation Time: 17:30 Change: Worse Comment: Patient remains hypotensive, given IVF (2nd L). Pending 2nd L, will give levophed MAP goal 65 GIGU Course/Dx - Course Course Of Treatment: 83 y/o male with a history of A. fib on anticoagulation presenting from [facility] for diarrhea and concern for GI bleed. - On arrival to ED, patient hypotensive to 60s over 40s, pale. Rectal dark stool no obvious blood. Patient is on Coumadin, INR was 2.8. Hemoglobin stable. White count significant elevated, chest x-ray obvious pneumonia. CT the abdomen without contrast obtained secondary to patient allergy. Urinalysis ordered. Lactate acid greater than 8. Concern for septic shock, patient was given 2 L of IV fluids, covered probably with vancomycin and Zosyn. Plan for admission to the ICU. Patient's blood pressure map of 65, discussed with family starting peripheral Levophed given Kristal. They do not wish to pursue central line at this time however they are aware he can only be on Levophed for a short period of time peripherally. Sepsis - suspected source of infection - unknown but suspect GI. . Plan. Initiated the inpatient sepsis 3 hour provider orderset. IV fluid bolus (30 mL/kg). serum lactate. blood cultures x 2. broad spectrum antibiotics. admit to ICU - Diagnoses Provider Diagnoses: Septic shock, GI bleed - Physician Notifications Discussed Care Of Patient With: Mick Forrest - Gastro Time Discussed With Above Provider: 18:54 Instructed by Provider To: Other - Spoke to Dr. Forrest at 18:54 who agreed to hold off on anticoagulation reversal due to his stable status. Spoke to Dr. Harry at 18:57 who accepted patient for admission. - Critical Care Time Critical Care Time: 30-74 min - Upon my evaluation, this patient had a high probability of imminent or life-threatening deterioration due to sepsis which required my direct attention, intervention, and personal management. I have personally provided 30 minutes of critical care time exclusive of time spent on separately billable procedures. Time includes review of laboratory data, radiology results, discussion with consultants, and monitoring for potential decompensation. Interventions were performed as documented above. Discharge ED - Sign-Out/Discharge Documenting (check all that apply): Patient Departure - Discharge Plan Condition: Critical Disposition: ADMITTED TO [facility] Referrals: Stephanie Young NP [Primary Care Provider] - - Billing Disposition and Condition Condition: CRITICAL Disposition: Admitted to [facility] - Attestation Statements Document Initiated by Scribe: Yes Documenting Scribe: Sajan Palafox Provider For Whom Scribe is Documenting (Include Credential): Jamari Stevens MD. Scribe Attestation: Sajan Duran, scribed for Jamari Stevens MD. on 07/08/19 at 2599. Scribe Documentation Reviewed: Yes Provider Attestation: The documentation as recorded by the scribe, Sajan Palafox accurately reflects the service I personally performed and the decisions made by me, Jamari Stevens MD. Status of Scribe Document: Viewed
[2019-07-08 17:36] LABS: Hematocrit 35 % (42-52); Hemoglobin 11.4 g/dL (14.0-18.0); Mean Corpuscular HGB Conc 33 g/dL (31-36); Mean Corpuscular Hemoglobin 31 pg (27-31); Mean Corpuscular Volume 94 fL (80-94); Mean Platelet Volume 6.5 fL (7.4-10.4); Platelet Count 280 10^3/uL (150-450); Red Blood Count 3.68 10^6 /uL (4.18-5.48); Red Cell Distribution Width 15 % (10-15); White Blood Count 24.8 10^3/uL (3.5-10.8)
[2019-07-08] MEDS ORDERED: Piperacillin/Tazobac ADVAN(*) 3.375 GM in NS 0.9% 100 ML* 100 ML IVPB ONE (17:50)
[2019-07-08 17:52] LABS: Albumin 2.7 g/dL (3.2-5.2); Albumin/Globulin Ratio 0.8 (1-3); BUN/Creatinine Ratio 23.3 (8-20); Calcium 8.5 mg/dL (8.6-10.3); EGFR African American 72.4 (>60); EGFR Non-African American 59.8 (>60); Globulin 3.3 g/dL (2-4); Potassium 4.8 mmol/L (3.5-5.0); Total Bilirubin 1.1 mg/dL (0.2-1.0)
[2019-07-08] MEDS ORDERED: Vancomycin(*) 1,000 MG VIAL IVPB SCH (18:00)
[2019-07-08] MEDS ORDERED: Vancomycin(*) 1,000 MG in NS 0.9% 250 ML* 250 ML IV ONE (18:00)
[2019-07-08 18:01] LABS: ABS Lymphocytes 0.3 10^3/ul (1.0-4.8); ABS Monocytes 1.8 10^3/ul (0-0.8); ABS Neutrophils 22.6 10^3/ul (1.5-7.7); Lymphocyte % 1.2 %
[2019-07-08 18:17] LABS: Troponin I 0.02 ng/mL (<0.03)
[2019-07-08] MEDS: NS 0.9% 1000 ML** 1,000 ML IV ONE ×3 (18:17→20:03)
[2019-07-08] MEDS ORDERED: Pantoprazole IV* 40 MG IV ONE (18:30)
[2019-07-08 18:39] LABS: INR 2.84 (0.82-1.09)
[2019-07-08] MEDS ORDERED: Phytonadione IV (Adult)* 10 MG/ML 1 ML AMP IV ONE (18:50)
[2019-07-08] MEDS ORDERED: Norepinephrine 16MCG/ML IVPRE* 4,000 MCG/250 ML BAG IV SCH (19:00)
[2019-07-08] MEDS ORDERED: Acetaminophen TAB* 325 MG PO PRN (20:02)
[2019-07-08] MEDS ORDERED: NS 0.9% 1000 ML** 1,000 ML IV SCH (20:15)
--- NOTE | 2019-07-08 20:49 | HP ---
History of Present Illness - History of Present Illness Reason for Visit: GIB History of Present Illness: 83 yo male with hx of colon cancer s/p resection (2001), PE/DVT on AC presented with concerns of GIB. Per family, pt was last seen at his usual health yesterday morning. Per records, it appears he started having loose tarry stool in the evening and continued to today. he was complaining of some abdominal pain then he became much more lethargic and pale. When the ambulance brought him over, his BP was very low. He was given 2L boluses. CT abdomen showed stercoal colitis with stool impaction in his rectum. His initial blood work showed severe LA, elevated WBC, H/H 11.4/35. Pt is DNR/DNI as per MOLTs form. After his pressure stabilized, he became more alert and confirmed his DNR/DNI. He did not want a central line. MOLTS form stated minimal intervention. - Past Medical History Cardiac: CAD, CHF Pulmonary: Pulmonary embolus Gastrointestinal: Constipation Heme/Onc: Cancer - Past Family History Family History: Cancer, CAD - Past Social History Smoke: No Alcohol: None Drugs: None Lives: Intermediate Review of Systems - Measurements Intake and Output: Intake and Output Last 24 Hours 07/06/19 07/07/19 07/08/19 07/09/19 06:59 06:59 06:59 06:59 Intake Total 1350 Balance 1350 Weight 155 lb Intake: IV Fluids 1350 - Review of Systems General Comments: Pt is obtunded Objective Active Medications: Acetaminophen (Tylenol Tab*) 650 mg PO Q4H PRN PRN Reason: MILD PAIN or TEMP > 100.4 Norepinephrine Bitartrate (Levophed 16 Mcg/Ml Premix*) 4,000 mcg in 250 mls @ 18.75 mls/hr IV .INITIAL RATE MICHAEL Sodium Chloride (Ns 0.9% 1000 Ml) 1,000 mls @ 100 mls/hr IV PER RATE MICHAEL Non-Formulary Medication (Carbidopa-Levodopa 25-100 Tab) 1 tab PO AC MICHAEL Vital Signs - 8 hr 07/08/19 07/08/19 07/08/19 17:21 17:25 17:42 Temperature 98.5 F Pulse Rate 96 81 84 Respiratory 21 30 32 Rate Blood Pressure 64/40 76/50 (mmHg) O2 Sat by Pulse 95 95 96 Oximetry 07/08/19 07/08/19 07/08/19 17:59 18:00 18:02 Temperature Pulse Rate 85 86 86 Respiratory 22 19 24 Rate Blood Pressure 79/53 79/54 (mmHg) O2 Sat by Pulse 95 98 97 Oximetry 07/08/19 07/08/19 07/08/19 18:08 18:14 18:17 Temperature Pulse Rate 87 82 Respiratory 20 27 Rate Blood Pressure 74/55 73/52 (mmHg) O2 Sat by Pulse 95 95 95 Oximetry 07/08/19 07/08/19 07/08/19 18:42 18:56 19:00 Temperature Pulse Rate 84 80 79 Respiratory 20 26 26 Rate Blood Pressure 85/55 81/59 (mmHg) O2 Sat by Pulse 95 97 95 Oximetry 07/08/19 07/08/19 07/08/19 19:02 19:11 19:26 Temperature Pulse Rate 86 79 80 Respiratory 26 27 20 Rate Blood Pressure 86/52 78/58 66/49 (mmHg) O2 Sat by Pulse 95 97 97 Oximetry 07/08/19 07/08/19 07/08/19 19:45 19:56 20:00 Temperature Pulse Rate 241 83 82 Respiratory 27 24 28 Rate Blood Pressure 94/62 93/64 (mmHg) O2 Sat by Pulse 89 95 97 Oximetry 07/08/19 07/08/19 20:11 20:26 Temperature Pulse Rate 81 79 Respiratory 23 23 Rate Blood Pressure 96/65 100/57 (mmHg) O2 Sat by Pulse 96 96 Oximetry Oxygen Devices in Use Now: None Appearance: pale, obtunded, mumbles incoherently when asked questions Eyes: No Scleral Icterus, PERRLA Neck: NL Appearance and Movements; NL JVP, Trachea Midline Respiratory: Symmetrical Chest Expansion and Respiratory Effort, Clear to Auscultation, Clear to Percussion Cardiovascular: NL Sounds; No Murmurs; No JVD, No Edema Abdominal: - - distended, hyperactive BS Extremities: No Edema Skin: No Rash or Ulcers, No Nodules or Sclerosis Neurological: - - chronically wheelchair bound. His lower EXTs atrophied Result Diagrams: 07/08/19 21:59 07/08/19 21:59 Microbiology and Other Data: Microbiology 07/08/19 17:35 Stool Occult Blood (ADOLFO) - Final Stool Assess/Plan/Problems-Billing Assessment: - Patient Problems (1) Colitis Current Visit: Yes Status: Acute Code(s): K52.9 - NONINFECTIVE GASTROENTERITIS AND COLITIS, UNSPECIFIED SNOMED Code(s): 64479662 Comment: 24 hours hx of abdominal pain, multiple loose tarry stool. Came in with pressures in the 60s. CT abdomen showed stool impaction with colitis. H/H was stable Received 4 L of fluids so far Will start zosyn and do aggresive bowel regimen. Blood cultures pending (2) Severe sepsis with acute organ dysfunction Current Visit: Yes Status: Acute Code(s): A41.9 - SEPSIS, UNSPECIFIED ORGANISM; R65.20 - SEVERE SEPSIS WITHOUT SEPTIC SHOCK SNOMED Code(s): 97470945 Comment: presented with hypotension, and eng organ damage, LA is elevated, cr is elevated Source is his bowels. His CT shows colitis aggressive fluid rescucitation. zosyn blood cultures pending. bowel regimen (3) Acute kidney injury Current Visit: No Status: Acute Code(s): N17.9 - ACUTE KIDNEY FAILURE, UNSPECIFIED SNOMED Code(s): 08744956 Comment: prerenal from hypotensition IVF (4) History of pulmonary embolism Current Visit: Yes Status: Acute Code(s): Z86.711 - PERSONAL HISTORY OF PULMONARY EMBOLISM SNOMED Code(s): 965320192 Comment: on eliquis, INR is therapeutic. H/H stable hold eliquis (5) DVT prophylaxis Current Visit: No Status: Acute Code(s): OQU7992 - SNOMED Code(s): 216624699 Comment: INR therapeutic TEDs (6) DNR (do not resuscitate) Current Visit: Yes Status: Acute
[2019-07-08 22:18] LABS: Hematocrit 32 % (42-52); Hemoglobin 10.5 g/dL (14.0-18.0); Mean Corpuscular HGB Conc 33 g/dL (31-36); Mean Corpuscular Hemoglobin 31 pg (27-31); Mean Corpuscular Volume 95 fL (80-94); Mean Platelet Volume 6.9 fL (7.4-10.4); Platelet Count 231 10^3/uL (150-450); Red Blood Count 3.34 10^6 /uL (4.18-5.48); Red Cell Distribution Width 16 % (10-15); White Blood Count 24.4 10^3/uL (3.5-10.8)
[2019-07-08] MEDS: NS 0.9% 1000 ML** 1,000 ML IV SCH (22:18)
[2019-07-08 22:20] LABS: ABS Lymphocytes 0.4 10^3/ul (1.0-4.8); ABS Monocytes 1.5 10^3/ul (0-0.8); ABS Neutrophils 22.4 10^3/ul (1.5-7.7); Eosinophil % 0.1 %; Lymphocyte % 1.8 %
[2019-07-08 22:31] LABS: ALT < 3 U/L (7-52); Albumin 2.2 g/dL (3.2-5.2); Albumin/Globulin Ratio 0.8 (1-3); Alkaline Phosphatase 50 U/L (34-104); BUN/Creatinine Ratio 29.4 (8-20); Blood Urea Nitrogen 25 mg/dL (6-24); CO2 Carbon Dioxide 16 mmol/L (22-32); Calcium 7.2 mg/dL (8.6-10.3); Chloride 111 mmol/L (101-111); EGFR African American 103.7 (>60); EGFR Non-African American 85.7 (>60); Globulin 2.8 g/dL (2-4); Glucose 133 mg/dL (70-100); Sodium 137 mmol/L (135-145)
[2019-07-08] MEDS ORDERED: Zosyn per Pharmacy* NOTE FOLLOW UP SCH (23:00)
[2019-07-08 23:13] LABS: Anion Gap 10 mmol/L (2-11); Potassium 4.8 mmol/L (3.5-5.0)
[2019-07-08 23:14] LABS: AST 11 U/L (13-39)
[2019-07-08 23:14] LABS: INR 2.56 (0.82-1.09)
[2019-07-08] MEDS: ZOSYN 3.375 GM Q8H per EXTENDED INFUSION IVPB SCH ×2 (23:48)
[2019-07-09] MEDS ORDERED: NS 0.9% 1000 ML** 2,000 ML IV ONE (02:15)
[2019-07-09] MEDS ORDERED: NS 0.9% 1000 ML** 1,000 ML IV ONE ×2 (03:19→06:00)
[2019-07-09] MEDS: NS 0.9% 1000 ML** 1,000 ML IV SCH (04:20)
[2019-07-09] MEDS: Norepinephrine 16MCG/ML IVPRE* 4,000 MCG/250 ML BAG IV SCH ×2 (04:20→08:56)
[2019-07-09 04:42] LABS: Urine Appearance Clear; Urine Bilirubin 1+ (Negative); Urine Blood Negative (Negative); Urine Color Amber; Urine Glucose Negative (Negative); Urine Ketones Trace (Negative); Urine Nitrite Negative (Negative); Urine Protein Negative (Negative); Urine Specific Gravity 1.018 (1.010-1.030); Urine Urobilinogen Positive (Negative)
[2019-07-09 05:23] LABS: ABS Basophils 0.1 10^3/ul (0-0.2); ABS Lymphocytes 0.7 10^3/ul (1.0-4.8); ABS Monocytes 1.7 10^3/ul (0-0.8); ABS Neutrophils 19.7 10^3/ul (1.5-7.7); Eosinophil % 0.1 %; Hematocrit 28 % (42-52); Hemoglobin 9.2 g/dL (14.0-18.0); Lymphocyte % 3.3 %; Mean Corpuscular HGB Conc 33 g/dL (31-36); Mean Corpuscular Hemoglobin 31 pg (27-31); Mean Corpuscular Volume 93 fL (80-94); Mean Platelet Volume 6.7 fL (7.4-10.4); Platelet Count 223 10^3/uL (150-450); Red Blood Count 3.01 10^6 /uL (4.18-5.48); Red Cell Distribution Width 16 % (10-15); White Blood Count 22.2 10^3/uL (3.5-10.8)
[2019-07-09 05:24] LABS: Albumin 2.2 g/dL (3.2-5.2); Calcium 6.6 mg/dL (8.6-10.3); Potassium 3.6 mmol/L (3.5-5.0); Total Bilirubin 0.8 mg/dL (0.2-1.0)
[2019-07-09 05:30] LABS: BUN/Creatinine Ratio 31.8 (8-20); EGFR African American 138.8 (>60); EGFR Non-African American 114.7 (>60); Globulin 2.2 g/dL (2-4); Total Protein 4.4 g/dL (6.4-8.9)
[2019-07-09] MEDS ORDERED: NS 0.9% 500 ML* @ Wide Open(Bolus) 500ml IV ONE (06:00)
[2019-07-09] MEDS ORDERED: Carbidopa/Levodop 25/100 MG TAB(*) PO SCH (07:30)
[2019-07-09] MEDS: ZOSYN 3.375 GM Q8H per EXTENDED INFUSION IVPB SCH ×2 (07:42)
[2019-07-09 10:51] VITALS: BP 93/48
--- NOTE | 2019-07-09 12:03 | DS ---
Please see Dr. Roach's H&P from 12 hrs ago for details. In brief 83 y/o male DNR/DNI/Limited Medical intervention admitted with severe hypoperfusion and became bradycardic this AM. In setting of his known express wishes with and daughter at the bedside he was allowed to have a natural and peaceful with his of 62 years holding his hand. The patient's and daughter thanked me repeatedly for supporting a natural and being with them in his dying moments. Time of 1025 AM on July 09, 2019. Immediate cause of respiratory failure causing cardiac failure in setting of severe sepsis likely from severe colitis.
== END 2019-07-09 10:25 | disposition expired | DRG 871 ==
LOC: ED 17:02 → ICU 20:02
PROVIDERS: ADMIT Student in an Organized Health Care Education/Training Program; ATTEND Internal Medicine Critical Care Medicine
DX: A41.9 Sepsis, unspecified organism (principal); J96.00 Acute respiratory failure, unspecified whether with hypoxia or hypercapnia; N17.9 Acute kidney failure, unspecified; K52.9 Noninfective gastroenteritis and colitis, unspecified; R65.20 Severe sepsis without septic shock; Z66 Do not resuscitate; Z86.711 Personal history of pulmonary embolism; I25.10 Atherosclerotic heart disease of native coronary artery without angina pectoris; I50.9 Heart failure, unspecified; K59.00 Constipation, unspecified; Z85.038 Personal history of other malignant neoplasm of large intestine; Z82.49 Family history of ischemic heart disease and other diseases of the circulatory system; Z80.9 Family history of malignant neoplasm, unspecified; Z99.3 Dependence on wheelchair; Z91.041 Radiographic dye allergy status; Z79.1 Long term (current) use of non-steroidal anti-inflammatories (NSAID); Z79.899 Other long term (current) drug therapy
CPT/HCPCS: 36415; 71045; 74176; 80053; 81003; 82270; 83605; 84484; 85025; 85610; 86850; 86900; 86901; 87040; 87641; 93005; 99285; J2543; J3370; J3430